=== PATIENT | male | born 1945 | race Caucasian/White ===

== ENCOUNTER 2016-10-18 12:46 | Inpatient (IN) | payer MEDICARE, BC ==
[2016-10-18] MEDS ORDERED: NORMAL SALINE 1000 ML 500 ML IV ONE (13:53)
[2016-10-18] MEDS ORDERED: LIDOCAINE 2% URO-JET 5 ML KIT MM ONE (13:53)
[2016-10-18] MEDS ORDERED: ACETAMINOPHEN 325 MG TABLET PO ONE (13:53)
--- NOTE | 2016-10-18 13:53 | ER Document Report ---
ED Fall - General Mode of Arrival: Medic Information source: Patient, Relative - TRAVEL OUTSIDE OF THE [place] IN LAST 30 DAYS: No - HPI Patient complains to provider of: Fall and weakness Occurred: This morning Context: Fell from sitting Associated symptoms: Other - see notes above Location of injury/pain: Other - see notes above <COLLIN FRANK - Last Filed: 10/18/16 16:03> <JACOB CHRISTIAN - Last Filed: 10/18/16 19:12> - General Chief Complaint: General Weakness Stated Complaint: GENERAL WEAKNESS/FALLS Time Seen by Provider: 10/18/16 13:40 Notes: 71-year-old male with history of diabetes, dementia, CHF, COPD, abdominal aortic aneurysm, and a left hip replacement presents to the ED via EMS after the patient fell while getting out of his bed and experiencing generalized weakness earlier this morning. Patient's states that she heard the patient yell at approximately 10:00 this morning and saw that the patient had fallen on his stomach with his left leg under his body. tried to help the patient up but was unable to so she called EMS. EMS arrived and reports a blood glucose of 155 and a temperature 101.4F. Reports that the patient may have scraped his right forearm as there is a new ecchymotic bruise there. Patient's left hip was replaced 6 months ago and is concerned that he may have hurt it when he fell. 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 claims that the patient has had episodes of weakness like this in the past. also states that the patient has had a bad appetite and is losing weight. PCP: Dr. Vela (COLLIN FRANK) - Related data Allergies/Adverse Reactions: Penicillins Allergy (Verified 05/01/15 12:58) unknown reaction from a child Past Medical History - General Information source: Patient - Social History Smoking Status: Current Every Day Smoker Chew tobacco use (# tins/day): No Frequency of alcohol use: None Drug Abuse: None Family History: Reviewed & Not Pertinent - Past Medical History Cardiac Medical History: Reports: Hx Congestive Heart Failure, Hx Heart Attack - x2, last one approx 4 yrs ago, Hx Hypertension - medicated, Other - Abdominal aorta aneurysm Pulmonary Medical History: Reports: Hx COPD Denies: Hx Asthma Neurological Medical History: Denies: Hx Cerebrovascular Accident, Hx Seizures Endocrine Medical History: Reports: Hx Diabetes Mellitus Type 2 GI Medical History: Denies: Hx Hepatitis, Hx Hiatal Hernia, Hx Ulcer Musculoskeltal Medical History: Reports Other - left hip replacement Infectious Medical History: Denies: Hx Hepatitis Past Surgical History: Reports: Hx Open Heart Surgery, Hx Orthopedic Surgery - left hip replacement. Denies: Hx Pacemaker <COLLIN FRANK - Last Filed: 10/18/16 16:03> Review of Systems - Review of Systems Constitutional: See HPI, Weight loss EENT: No symptoms reported Cardiovascular: No symptoms reported Respiratory: No symptoms reported Gastrointestinal: See HPI, Poor appetite Genitourinary: No symptoms reported Male Genitourinary: No symptoms reported Musculoskeletal: No symptoms reported Skin: No symptoms reported Hematologic/Lymphatic: No symptoms reported Neurological/Psychological: See HPI, Weakness - generalized -: Yes All other systems reviewed and negative <COLLIN FRANK - Last Filed: 10/18/16 16:03> Physical Exam <COLLIN FRANK - Last Filed: 10/18/16 16:03> <JACOB CHRISTIAN - Last Filed: 10/18/16 19:12> - Vital signs Vitals: Temp Pulse Resp BP Pulse Ox 100.1 F 115 H 22 H 117/84 94 10/18/16 12:57 10/18/16 12:57 10/18/16 12:57 10/18/16 12:57 10/18/16 12:57 - Notes Notes: GENERAL: Alert, interacts well. No acute distress. HEAD: Normocephalic, atraumatic. EYES: Pupils equal, round, and reactive to light. Extraocular movements intact. ENT: Oral mucosa moist, tongue midline. NECK: Full range of motion. Supple. Trachea midline. LUNGS: Clear to auscultation bilaterally, no wheezes, rales, or rhonchi. No respiratory distress. HEART: Tachycardic with normal rhythm. No murmurs, gallops, or rubs. ABDOMEN: Soft. Non-distended. Bowel sounds present in all 4 quadrants. Tenderness to palpation to the LLQ. EXTREMITIES: Moves all 4 extremities spontaneously. No edema, radial and dorsalis pedis pulses 2/4 bilaterally. No cyanosis. NEUROLOGICAL: Alert and oriented x3. Normal speech. Biceps and patellar DTRs 2+ bilaterally. 5/5 muscle strength to the bilateral lower extremities. PSYCH: Normal affect, normal mood. SKIN: Warm, dry, normal turgor. Superficial ecchymosis at various stages of healing that are worse on the right arm than left. Ecchymosis to the bilateral knees. No break in skin noted. (COLLIN FRANK) Course - Laboratory Result Diagrams: 10/18/16 14:03 10/18/16 14:03 <COLLIN FRANK - Last Filed: 10/18/16 16:03> - Laboratory Result Diagrams: 10/18/16 14:03 10/18/16 14:03 <JACOB CHRISTIAN - Last Filed: 10/18/16 19:12> - Re-evaluation Re-evalutation: 10/18/16 16:02 CBC shows leukocytosis of 15.7 with a bandemia of 6%, coags within normal limits , venous blood gas grossly unremarkable, chemistries show increased creatinine at 1.59, lactic acid is elevated at 2.4, cardiac enzymes negative but detectable with a troponin of 0.015. Urinalysis negative. Chest x-ray shows some curly B-lines for some mild interstitial edema, CT scan of the head shows old lacunar infarct and small vessel disease but no acute bleed or abnormality. Patient does fits sepsis criteria with his initial tachycardia and hypoxia as well as leukocytosis and elevated lactic acid. Patient will not be given 30 cc/ kg of fluid at this time as he has a history of congestive heart failure and I do not wish to compromise his respiratory status. Patient does have an EKG that shows some mild ischemic changes. Patient was covered with Levaquin for sepsis of unknown origin. CTA of the chest will be ordered to rule out pulmonary embolism as he still requires 4 L via nasal cannula to maintain his oxygen saturation at 93%. CT scan of the abdomen and pelvis with IV contrast only will also be ordered as the patient is now complaining of some left lower quadrant abdominal pain and he does have left lower quadrant abdominal pain on palpation on exam. Patient and family member were updated on the plan. (JACOB CHRISTIAN) - Vital Signs Vital signs: Temp Pulse Resp BP Pulse Ox 100.1 F 115 H 20 117/84 93 10/18/16 12:57 10/18/16 12:57 10/18/16 16:00 10/18/16 12:57 10/18/16 16:00 - Laboratory Laboratory results interpreted by me: 10/18/16 10/18/16 10/18/16 14:03 14:03 14:03 WBC 15.7 H RDW 14.7 H Seg Neuts % (Manual) 86 H Band Neutrophils % 6 H Lymphocytes % (Manual) 3 L Abs Neuts (Manual) 14.4 H Sodium 135.3 L Chloride 95 L Creatinine 1.59 H Est GFR ( Amer) 52 L Est GFR (Non-Af Amer) 43 L Glucose 116 H Lactic Acid 2.4 H NT-Pro-B Natriuret Pep 10/18/16 10/18/16 14:03 18:30 WBC RDW Seg Neuts % (Manual) Band Neutrophils % Lymphocytes % (Manual) Abs Neuts (Manual) Sodium Chloride Creatinine Est GFR ( Amer) Est GFR (Non-Af Amer) Glucose Lactic Acid 2.4 H NT-Pro-B Natriuret Pep 1760 H - EKG Interpretation by Me Additional EKG results interpreted by me: 10/18/16 14:51 EKG shows sinus rhythm at a rate of 95, normal axis, normal intervals, ST segment elevation with T-wave inversions in aVR, no other ST segment elevations , there are ST segment depressions in V3 through V6, per my interpretation. Patient is not having any chest pain with this. (JACOB CHRISTIAN) Discharge <COLLIN FRANK - Last Filed: 10/18/16 16:03> - Discharge Admitting Provider: Hospitalist - [facility] Unit Admitted: [facility] <JACOB CHRISTIAN - Last Filed: 10/18/16 19:12> - Discharge Clinical Impression: Acute on chronic respiratory failure with hypoxia Sepsis Qualifiers: Sepsis type: sepsis due to unspecified organism Qualified Code(s): A41.9 - Sepsis, unspecified organism Acute renal failure Qualifiers: Acute renal failure type: unspecified Qualified Code(s): N17.9 - Acute kidney failure, unspecified Senile dementia Qualifiers: Dementia behavioral disturbance: without behavioral disturbance Qualified Code( s): F03.90 - Unspecified dementia without behavioral disturbance Condition: Fair Disposition: ADMITTED INPATIENT Scribe Attestation: 10/18/16 19:12 I personally performed the services described in the documentation, reviewed and edited the documentation which was dictated to the scribe in my presence, and it accurately records my words and actions. (JACOB CHRISTIAN) Scribe Documentation - Scribe Written by Jerry:: Jerry Chávez, 10/18/2016 1446 acting as scribe for :: Michel <COLLIN FRANK - Last Filed: 10/18/16 16:03>
[2016-10-18 14:17] LABS: HEMOGLOBIN 15.3 g/dL (13.5-17.0); HGB HCT DIFFERENCE -1.1; MEAN CORPUSCULAR HGB CONC 32.6 g/dL (32.0-36.0); MEAN CORPUSCULAR VOLUME 89 fl (80-97); RED BLOOD COUNT 5.29 10^6/uL (4.35-5.55); RED CELL DISTRIBUTION WIDTH 14.7 % (11.5-14.0); WHITE BLOOD COUNT 15.7 10^3/uL (4.0-10.5)
[2016-10-18 14:21] LABS: APPEARANCE,URINE CLEAR; BILIRUBIN,URINE NEGATIVE (NEGATIVE); GLUCOSE, URINE NEGATIVE (NEGATIVE); KETONES,URINE NEGATIVE (NEGATIVE); LEUKOCYTE ESTERASE,URINE NEGATIVE (NEGATIVE); NITRITE,URINE NEGATIVE (NEGATIVE); PROTEIN,URINE NEGATIVE (NEGATIVE); URINE SPECIFIC GRAVITY 1.008; UROBILINOGEN,URINE NEGATIVE mg/dL (<2.0)
[2016-10-18 14:23] LABS: PROTHROMBIN TIME 12.7 SEC (11.4-15.4)
[2016-10-18 14:35] LABS: ALANINE AMINOTRANSFERASE 24 U/L (21-72); ALBUMIN 3.9 g/dL (3.5-5.0); ALKALINE PHOSPHATASE 97 U/L (38-126); ANION GAP 10 (5-19); ASPARTATE AMINO TRANSFERASE 35 U/L (17-59); BAND NEUTROPHILS % (MANUAL) 6 % (3-5); BASOPHILS % (MANUAL) 0 % (0-2); BILIRUBIN,DIRECT 0.4 mg/dL (0.0-0.4); BILIRUBIN,TOTAL 0.7 mg/dL (0.2-1.3); BLOOD UREA NITROGEN 20 mg/dL (7-20); CALCIUM 9.3 mg/dL (8.4-10.2); CARBON DIOXIDE 30 mmol/L (22-30); CHLORIDE 95 mmol/L (98-107); CREATININE RESULT 1.59 mg/dL (0.52-1.25); EOSINOPHILS % (MANUAL) 1 % (0-6); GLUCOSE 116 mg/dL (75-110); LYMPHOCYTES % (MANUAL) 3 % (13-45); POTASSIUM 4.8 mmol/L (3.6-5.0); SODIUM 135.3 mmol/L (137-145); TOTAL CELLS COUNTED 100; TOTAL PROTEIN 7.2 g/dL (6.3-8.2)
[2016-10-18 14:37] LABS: HYPOCHROMASIA SLIGHT; PLATELET CLUMPS PRESENT
[2016-10-18] MEDS ORDERED: OXYCODONE HCL SR 10 MG TABLET PO ONE ×2 (14:50)
--- NOTE | 2016-10-18 15:34 | RADIOLOGY REPORT (SQ) ---
EXAM DESCRIPTION: CT HEAD WITHOUT COMPLETED DATE/TIME: 10/18/2016 3:11 pm REASON FOR STUDY: fall, AMS COMPARISON: Carotid Doppler 03/01/2015 TECHNIQUE: Axial images acquired through the brain without intravenous contrast. Images reviewed wi th bone, brain and subdural windows. Images stored on PACS. All CT scanners at this facility use dose modulation, iterative reconstruction, and/or weight based d osing when appropriate to reduce radiation dose to as low as reasonably achievable (ALARA). [facility]: Dose Right [facility]: CareDose [facility]: Dose Right [facility]: Teradose 4D [facility]: [employer] RADIATION DOSE: 64.61 mGy. LIMITATIONS: None. FINDINGS: VENTRICLES: Normal size and contour. CEREBRUM: No CT evidence of acute large territory ischemic change, acute intracranial hemorrhage, mas s effect, or midline shift. There is moderate bifrontal and biparietal small vessel ischemic change with a chronic lacunar infarc t in the left caudate. CEREBELLUM: No masses. No hemorrhage. No alteration of density. No evidence for acute infarction. EXTRAAXIAL SPACES: No fluid collections. No masses. ORBITS AND GLOBE: No intra- or extraconal masses. Normal contour of globe without masses. CALVARIUM: No fracture. PARANASAL SINUSES: No fluid or mucosal thickening. SOFT TISSUES: No mass or hematoma. OTHER: No other significant finding. IMPRESSION: No acute findings. Small vessel white matter disease with old lacunar infarct in the le ft caudate. TECHNICAL DOCUMENTATION: JOB ID: [id number] Quality ID # [id number]: Final reports with documentation of one or more dose reduction techniques (e.g., Au tomated exposure control, adjustment of the mA and/or kV according to patient size, use of iterative reconstruction technique) 2010 [employer]- All Rights Reserved
--- NOTE | 2016-10-18 15:43 | RADIOLOGY REPORT (SQ) ---
EXAM DESCRIPTION: CHEST SINGLE VIEW COMPLETED DATE/TIME: 10/18/2016 2:43 pm REASON FOR STUDY: SOB, fever COMPARISON: AP chest 06/20/2008 EXAM PARAMETERS: NUMBER OF VIEWS: One view. TECHNIQUE: Single frontal radiographic view of the chest acquired. RADIATION DOSE: NA LIMITATIONS: None. FINDINGS: LUNGS AND PLEURA: Mild increased interstitial markings at both bases may represent Vicki lines from mild interstitial edema. No fluffy alveolar infiltrates worrisome for alveolar edema or pneumonia. No gross pleural effusion. No pneumothorax. MEDIASTINUM AND HILAR STRUCTURES: No masses. Contour normal. HEART AND VASCULAR STRUCTURES: Heart normal in size. Normal vasculature. BONES: No acute findings. HARDWARE: None in the chest. OTHER: No other significant finding. IMPRESSION: Few Vicki lines at the lung bases could indicate mild interstitial edema. No pleural e ffusions or alveolar edema. No cardiomegaly TECHNICAL DOCUMENTATION: JOB ID: [id number]
[2016-10-18] MEDS ORDERED: LEVOFLOXACIN 750 MG/D5W RTU 150 ML IV ONE (15:47)
[2016-10-18 15:59] LABS: VENOUS BLOOD BASE EXCESS 3.6 mmol/L; VENOUS BLOOD HCO3 31.1 mmol/L (20-32); VENOUS BLOOD PCO2 59.4 mmHg (35-63); VENOUS BLOOD PH 7.34 (7.30-7.42)
[2016-10-18] MEDS ORDERED: NORMAL SALINE 1000 ML 1,000 ML IV ONE (16:36)
--- NOTE | 2016-10-18 16:54 | RADIOLOGY REPORT (SQ) ---
EXAM DESCRIPTION: CTA CHEST COMPLETED DATE/TIME: 10/18/2016 4:36 pm REASON FOR STUDY: SOB, tachycardia, hypoxia COMPARISON: None. TECHNIQUE: CT scan of the chest performed using helical scanning technique with dynamic intravenous contrast injection. Images reviewed with lung, soft tissue and bone windows. Reconstructed coronal and sagittal MPR images reviewed. Additional 3 dimensional post-processing performed to develop Maximal Intensity Projection images (WV P). All images stored on PACS. All CT scanners at this facility use dose modulation, iterative reconstruction, and/or weight based d osing when appropriate to reduce radiation dose to as low as reasonably achievable (ALARA). [facility]: Dose Right [facility]: CareDose [facility]: Dose Right [facility]: Teradose 4D [facility]: [employer] CONTRAST TYPE AND DOSE: 82 mL of Isovue 300- low osmolar. RENAL FUNCTION: BUN 20 creatinine 1.59 RADIATION DOSE: 41.33 . LIMITATIONS: None. FINDINGS: LUNGS AND PLEURA: There is parenchymal scarring and cystic changes noted in both lower lob es as well as scattered in the right upper lobe. Represent underlying pulmonary fibrosis. Scattered cystic changes are noted throughout the lungs could represent emphysematous disease. There is a 1. 6 cm nodular opacity noted in the right upper lobe (series 4, image 49). No focal infiltrates. No p neumothorax. No significant pleural effusion. AORTA AND GREAT VESSELS: No aneurysm or dissection. There is diffuse fibrofatty and calcific atherom atous disease seen throughout the descending thoracic aorta. HEART: No pericardial effusion. Coronary artery calcifications are noted. There is calcifications o f the aortic valve annulus. PULMONARY ARTERIES: No emboli visualized in the main pulmonary arteries or the segmental branches. HILAR AND MEDIASTINAL STRUCTURES: Soft tissue thickening seen in the right hilum could be related to adenopathy. There is minimal thickening seen in the left hilum. No significant mediastinal adenopat hy identified. HARDWARE: None in the chest. UPPER ABDOMEN: See separate report of the CT of the abdomen. THYROID AND OTHER SOFT TISSUES: No masses. No adenopathy. BONES: No acute or significant finding. Multilevel degenerative changes noted in the spine. 3D MIPS: Confirm above findings. OTHER: No other significant finding. IMPRESSION: 1. No acute pulmonary embolus identified. 2. There is some parenchymal scarring and cystic changes noted the lower lobe this could be represen t an of the underlying pulmonary fibrosis versus new parenchymal scarring related to chronic obstruct luan pulmonary disease. There is some parenchymal scarring noted throughout the right upper lobe. So me cystic changes seen in both upper lobes suggestive of emphysema. There is a 1.6 cm nodular like o pacity seen in the right upper lobe, follow-up recommendations of the below. No focal consolidations . COMMENT: FLEISCHNER CRITERIA FOR FOLLOW-UP OF PULMONARY NODULES Incidentally detected new nodules in persons 35 or older. HIGH RISK: History of smoking or other known risk factors. >8mm single solid nodule: LOW and HIGH RISK: consider CT, PET/CT or biopsy at 3 mo. TECHNICAL DOCUMENTATION: JOB ID: [id number] Quality ID # [id number]: Final reports with documentation of one or more dose reduction techniques (e.g., Au tomated exposure control, adjustment of the mA and/or kV according to patient size, use of iterative reconstruction technique) 2010 [employer]- All Rights Reserved
--- NOTE | 2016-10-18 17:07 | RADIOLOGY REPORT (SQ) ---
EXAM DESCRIPTION: CT ABD/PELVIS WITH IV ONLY COMPLETED DATE/TIME: 10/18/2016 4:37 pm REASON FOR STUDY: sepsis, source unknown, abd pain COMPARISON: None. TECHNIQUE: CT scan of the abdomen and pelvis performed using helical scanning technique with dynamic intravenous contrast injection. No oral contrast. Images reviewed with lung, soft tissue, and bone windows. Reconstructed coronal and sagittal MPR images reviewed. Delayed images for evaluation of the urinary system also acquired. All images stored on PACS. All CT scanners at this facility use dose modulation, iterative reconstruction, and/or weight based d osing when appropriate to reduce radiation dose to as low as reasonably achievable (ALARA). [facility]: Dose Right [facility]: CareDose [facility]: Dose Right [facility]: Teradose 4D [facility]: [employer] CONTRAST TYPE AND DOSE: contrast/concentration: Isovue 370.00 mg/ml; Total Contrast Delivered: 82.0 ml; Total Saline Delivered: 78.1 ml RENAL FUNCTION: BUN 20 creatinine 1.59 RADIATION DOSE: 32.35. LIMITATIONS: None. FINDINGS: LOWER CHEST: See separate report of the CT of the chest. LIVER: Normal size. No masses or dilated ducts. SPLEEN: Normal size. No focal lesions. PANCREAS: No masses. No significant calcifications. No adjacent inflammation or peripancreatic fluid collections. Pancreatic duct not dilated. Diffuse fatty replacement of the pancreas. GALLBLADDER: No identified stones by CT criteria. No inflammatory changes to suggest cholecystitis. ADRENAL GLANDS: 1.7 cm nodule noted in the left adrenal gland. Most likely represents an adenoma but cannot be properly evaluated on this study. Right adrenal is normal. RIGHT KIDNEY AND URETER: No solid masses. Numerous exophytic cysts noted throughout. No significant calcifications. No hydronephrosis or hydroureter. LEFT KIDNEY AND URETER: No solid masses. No significant calcifications. No hydronephrosis or hydr oureter. AORTA AND VESSELS: There is aneurysmal dilatation of the infrarenal abdominal aorta measuring 3.4 x 3 .3 cm in greatest AP and transverse dimensions. There is mural thrombus and/or fibrofatty plaque wit hin the aneurysm sac. Scattered calcific atherosclerosis noted in the vessel simon. No dissection. The celiac and SMA and renal arteries are patent. LANDY appears occluded at its origin and fills via collateral filling. RETROPERITONEUM: No retroperitoneal adenopathy, hemorrhage or masses. BOWEL AND PERITONEAL CAVITY: No masses or inflammatory changes. No free fluid or peritoneal masses. No pneumoperitoneum. APPENDIX: Not visualized. No blind-ending dilated loops of bowel are noted in the right lower quadra nt. No inflammatory changes seen in the right lower quadrant. PELVIS: No masses, adenopathy, or free fluid. There is slight thickening of the urinary bladder wall which may be secondary to underdistention versus muscle hypertrophy. ABDOMINAL WALL: No masses. No hernias. BONES: No suspicious or acute osseous abnormality identified. Multilevel degenerative changes of the spine. Left total hip arthroplasty. OTHER: No other significant finding. IMPRESSION: 1. No acute abnormality identified within the abdomen pelvis 2. Aneurysmal dilatation of the infrarenal abdominal aorta measuring 3.4 x 3.3 cm in greatest AP and transverse dimension. Mural thrombus noted within the aneurysm sac. No dissection. SMA and celiac and renal arteries are patent. The LANDY origin appears occluded and fills via collateral filling. 3. 1.7 cm nodule in the left adrenal gland. Not properly characterized on this study. TECHNICAL DOCUMENTATION: JOB ID: [id number] Quality ID # [id number]: Final reports with documentation of one or more dose reduction techniques (e.g., Au tomated exposure control, adjustment of the mA and/or kV according to patient size, use of iterative reconstruction technique) 2010 [employer]- All Rights Reserved
[2016-10-18] MEDS ORDERED: ACETAMINOPHEN 650 MG SUPP.RECT PR PRN (18:24)
[2016-10-18] MEDS ORDERED: ONDANSETRON HCL INJ/PF 4 MG/2 ML SDV IV PRN (18:24)
--- NOTE | 2016-10-18 18:38 | PDOC H&P ---
History of Present Illness Admission Date/PCP: LEEROY MCNAIR MD Patient complains of: Fall History of Present Illness: MONIQUE CALLAHAN is a 71 year old male, w/ history of dementia, COPD, CHF has runny nose and sinus congestion for 3 weeks. There is mild headache. He is not on the home oxygen. He has a mild cough productive of yellowish phlegm. There is no sore throat associated. No hemoptysis. There is no pleurisy, shortness of breath, dizziness or lightheadedness, but admits having some facial pressure intermittently. Denies any chills or fever as well. Earlier the day prior to admission patient fell on the floor but without any significant injuries. He was having generalized weakness and unable to get up. He was found by his and was brought to the hospital. In the emergency room where workup was performed he has lactic acid level was mildly elevated as well as brain natruretic peptide. Chest x-ray shows chronic interstitial findings. He does have a history of CHF. Emergency physician thought it was a combination of sepsis as well as heart failure and so antibiotic was given but no aggressive IV fluid management was done. Patient did have a fever in the emergency room. He denies recent travel nor any insect bites. Past Medical History Cardiac Medical History: Reports: Congestive Heart Failure, Coronary Artery Disease, Myocardial Infarction - x2, last one approx 4 yrs ago, Hypertension - medicated, Peripheral Vascular Disease, Other - Abdominal aorta aneurysm Pulmonary Medical History: Reports: Chronic Obstructive Pulmonary Disease (COPD) Denies: Asthma Neurological Medical History: Reports: Other - Dementia Denies: Seizures Endocrine Medical History: Reports: Diabetes Mellitus Type 2 GI Medical History: Denies: Hepatitis, Hiatal Hernia Musculoskeltal Medical History: Reports: Other - left hip replacement Hematology: Denies: Anemia, Sickle Cell Disease Past Surgical History Past Surgical History: Reports: Orthopedic Surgery - left hip replacement, Other - Cataract surgery, femoral popliteal bypass Denies: Pacemaker Social History Information Source: Patient Smoking Status: Current Every Day Smoker Frequency of Alcohol Use: None Hx Recreational Drug Use: No Drugs: None Family History Family History: None Parental Family History Reviewed: Yes Children Family History Reviewed: Yes Sibling(s) Family History Reviewed.: Yes Medication/Allergy Home Medications: Aspirin 81 mg PO DAILY 05/01/15 Atorvastatin Calcium [Lipitor 20 mg Tablet] 20 mg PO QHS 05/01/15 Clopidogrel Bisulfate [Plavix] 75 mg PO DAILY 05/01/15 Diazepam [Valium] 20 mg PO QHS 05/01/15 Gabapentin [Neurontin] 600 mg PO QHS 05/01/15 Lisinopril 40 mg PO DAILY 05/01/15 Metformin HCl [Glucophage] 1,000 mg PO QPM 05/01/15 Metoprolol Succinate 200 mg PO DAILY 05/01/15 Nitroglycerin [Nitrostat 0.4 mg (1/150 Gr) Tabs 25/Bottle] 1 tab SL Q5MP PRN Omeprazole 20 mg PO DAILY 05/01/15 Oxycodone HCl 30 mg PO QAM 05/01/15 Donepezil HCl 5 mg PO DAILY 10/18/16 Meloxicam 7.5 mg PO DAILY 10/18/16 Oxycodone HCl 15 mg PO Q4HP PRN 10/18/16 Allergies/Adverse Reactions: Penicillins Allergy (Verified 05/01/15 12:58) unknown reaction from a child Review of Systems Constitutional: PRESENT: fatigue, headache(s), weakness - Generalized. ABSENT: chills, fever(s), weight gain, weight loss Eyes: ABSENT: visual disturbances Ears: ABSENT: hearing changes Nose, Mouth, and Throat: ABSENT: mouth pain, sore throat Cardiovascular: ABSENT: chest pain, dyspnea on exertion, edema, orthropnea, palpitations Respiratory: PRESENT: cough, sputum. ABSENT: dyspnea, hemoptysis Gastrointestinal: ABSENT: abdominal pain, constipation, diarrhea, hematemesis, hematochezia, melena, nausea, vomiting Genitourinary: ABSENT: dysuria, hematuria Musculoskeletal: ABSENT: joint swelling Integumentary: ABSENT: pruritus, rash, wounds Neurological: ABSENT: abnormal gait, abnormal speech, confusion, dizziness, focal weakness, syncope Psychiatric: ABSENT: anxiety, depression, homidical ideation, suicidal ideation Endocrine: ABSENT: cold intolerance, heat intolerance, polydipsia, polyuria Hematologic/Lymphatic: ABSENT: easy bleeding, easy bruising Physical Exam Vital Signs: Temp Pulse Resp BP Pulse Ox 100.1 F 115 H 20 117/84 93 10/18/16 12:57 10/18/16 12:57 10/18/16 16:00 10/18/16 12:57 10/18/16 16:00 General appearance: PRESENT: no acute distress, cooperative, obese Head exam: PRESENT: atraumatic, normocephalic Eye exam: PRESENT: conjunctiva pink, EOMI, PERRLA. ABSENT: scleral icterus Ear exam: PRESENT: normal external ear exam. ABSENT: drainage Mouth exam: PRESENT: moist, neck supple, tongue midline Throat exam: PRESENT: other - Postnasal drip. ABSENT: post pharyngeal erythema , tonsillar erythema Neck exam: ABSENT: carotid bruit, JVD, lymphadenopathy, thyromegaly Respiratory exam: PRESENT: clear to auscultation rocio - Anteriorly, decreased breath sounds - Bilateral. ABSENT: rales, rhonchi, wheezes Cardiovascular exam: PRESENT: RRR. ABSENT: diastolic murmur, rubs, systolic murmur Pulses: PRESENT: normal dorsalis pedis pul Vascular exam: PRESENT: normal capillary refill GI/Abdominal exam: PRESENT: normal bowel sounds, soft. ABSENT: distended, guarding, mass, organolmegaly, rebound, tenderness Rectal exam: PRESENT: deferred Extremities exam: PRESENT: full ROM. ABSENT: calf tenderness, clubbing, pedal edema Neurological exam: PRESENT: alert, awake, oriented to person, oriented to place , oriented to time, oriented to situation, CN II-XII grossly intact Psychiatric exam: PRESENT: appropriate affect, normal mood. ABSENT: homicidal ideation, suicidal ideation Skin exam: PRESENT: dry, intact, warm. ABSENT: cyanosis, rash Results Laboratory Results: 10/18/16 14:03 10/18/16 14:03 10/18/16 10/18/16 10/18/16 13:34 14:03 14:03 WBC 15.7 H RBC 5.29 Hgb 15.3 Hct 47.0 MCV 89 MCH 29.0 MCHC 32.6 RDW 14.7 H Plt Count 154 Seg Neutrophils % Not Reportable Lymphocytes % Not Reportable Monocytes % Not Reportable Eosinophils % Not Reportable Basophils % Not Reportable Absolute Neutrophils Not Reportable Absolute Lymphocytes Not Reportable Absolute Monocytes Not Reportable Absolute Eosinophils Not Reportable Absolute Basophils Not Reportable VBG pH VBG pCO2 VBG HCO3 VBG Base Excess Sodium 135.3 L Potassium 4.8 Chloride 95 L Carbon Dioxide 30 Anion Gap 10 BUN 20 Creatinine 1.59 H Est GFR ( Amer) 52 L Est GFR (Non-Af Amer) 43 L Glucose 116 H Lactic Acid Calcium 9.3 Total Bilirubin 0.7 AST 35 ALT 24 Alkaline Phosphatase 97 Total Protein 7.2 Albumin 3.9 Urine Color YELLOW Urine Appearance CLEAR Urine pH 7.0 Ur Specific [place] 1.008 Urine Protein NEGATIVE Urine Glucose (UA) NEGATIVE Urine Ketones NEGATIVE Urine Blood NEGATIVE Urine Nitrite NEGATIVE Ur Leukocyte Esterase NEGATIVE Urine WBC (Auto) 0 Urine RBC (Auto) 1 10/18/16 10/18/16 14:03 15:50 WBC RBC Hgb Hct MCV MCH MCHC RDW Plt Count Seg Neutrophils % Lymphocytes % Monocytes % Eosinophils % Basophils % Absolute Neutrophils Absolute Lymphocytes Absolute Monocytes Absolute Eosinophils Absolute Basophils VBG pH 7.34 VBG pCO2 59.4 VBG HCO3 31.1 VBG Base Excess 3.6 Sodium Potassium Chloride Carbon Dioxide Anion Gap BUN Creatinine Est GFR ( Amer) Est GFR (Non-Af Amer) Glucose Lactic Acid 2.4 H Calcium Total Bilirubin AST ALT Alkaline Phosphatase Total Protein Albumin Urine Color Urine Appearance Urine pH Ur Specific [place] Urine Protein Urine Glucose (UA) Urine Ketones Urine Blood Urine Nitrite Ur Leukocyte Esterase Urine WBC (Auto) Urine RBC (Auto) 10/18/16 10/18/16 14:03 14:03 Troponin I 0.015 NT-Pro-B Natriuret Pep 1760 H Impressions: Chest X-Ray 10/18/16 13:53 IMPRESSION: Few Vicki lines at the lung bases could indicate mild interstitial edema. No pleural effusions or alveolar edema. No cardiomegaly Head CT 10/18/16 13:53 IMPRESSION: No acute findings. Small vessel white matter disease with old lacunar infarct in the left caudate. Chest/Abdomen CTA 10/18/16 15:45 IMPRESSION: 1. No acute pulmonary embolus identified. 2. There is some parenchymal scarring and cystic changes noted the lower lobe this could be represent an of the underlying pulmonary fibrosis versus new parenchymal scarring related to chronic obstructive pulmonary disease. There is some parenchymal scarring noted throughout the right upper lobe. Some cystic changes seen in both upper lobes suggestive of emphysema. There is a 1.6 cm nodular like opacity seen in the right upper lobe, follow-up recommendations of the below. No focal consolidations. Abdomen/Pelvis CT 10/18/16 15:46 IMPRESSION: 1. No acute abnormality identified within the abdomen pelvis 2. Aneurysmal dilatation of the infrarenal abdominal aorta measuring 3.4 x 3.3 cm in greatest AP and transverse dimension. Mural thrombus noted within the aneurysm sac. No dissection. SMA and celiac and renal arteries are patent. The LANDY origin appears occluded and fills via collateral filling. 3. 1.7 cm nodule in the left adrenal gland. Not properly characterized on this study. Assessment & Plan - Diagnosis (1) Sepsis Qualifiers: Sepsis type: sepsis due to unspecified organism Qualified Code(s): A41.9 - Sepsis, unspecified organism Is this a current diagnosis for this admission?: Yes (2) Acute sinusitis Qualifiers: Sinusitis location: unspecified location Recurrence: not specified as recurrent Qualified Code(s): J01.90 - Acute sinusitis, unspecified Is this a current diagnosis for this admission?: Yes (3) Acute renal failure Qualifiers: Acute renal failure type: unspecified Qualified Code(s): N17.9 - Acute kidney failure, unspecified Is this a current diagnosis for this admission?: Yes (4) COPD (chronic obstructive pulmonary disease) Qualifiers: COPD type: unspecified COPD Qualified Code(s): J44.9 - Chronic obstructive pulmonary disease, unspecified Is this a current diagnosis for this admission?: Yes (5) Senile dementia Qualifiers: Dementia behavioral disturbance: without behavioral disturbance Qualified Code(s): F03.90 - Unspecified dementia without behavioral disturbance Is this a current diagnosis for this admission?: Yes (6) Diabetes mellitus type 2 in nonobese Is this a current diagnosis for this admission?: Yes (7) Abdominal aortic aneurysm Qualifiers: Presence of rupture: without rupture Qualified Code(s): I71.4 - Abdominal aortic aneurysm, without rupture Is this a current diagnosis for this admission?: Yes (8) Coronary artery disease Qualifiers: Coronary Disease-Associated Artery/Lesion type: [place] artery [place] vs. transplanted heart: [place] heart Associated angina: without angina Qualified Code(s): I25.10 - Atherosclerotic heart disease of [place] coronary artery without angina pectoris Is this a current diagnosis for this admission?: Yes (9) Essential hypertension Is this a current diagnosis for this admission?: Yes (10) Peripheral vascular disease Is this a current diagnosis for this admission?: Yes - Time Time Spent: 50 to 70 Minutes - Inpatient Certification Based on my medical assessment, after consideration of the patient's comorbidities, presenting symptoms, or acuity I expect that the services needed warrant INPATIENT care.: Yes I certify that my determination is in accordance with my understanding of Medicare's requirements for reasonable and necessary INPATIENT services [42 CFR 412.3e].: Yes Medical Necessity: Need Close Monitoring Due to Risk of Patient Decompensation, Need For IV Fluids, Need For Continuous Telemetry Monitoring, Need for IV Antibiotics Post Hospital Care: D/C [employer] Refrigeration Technician Documentation - Plan Summary Plan Summary: The patient will be admitted to telemetry. I will gently hydrate the patient with normal saline. We will begin broad-spectrum antibiotic with Levaquin and clindamycin. In the meantime we will monitor creatinine and WBC. DVT prophylaxis with Lovenox will be placed. Antipyretics will be given as needed. We will check a KUB for impaction. Patient's mildly elevated lactic acid could be secondary to metformin, we will hold the medication for now. Further testing depends on the initial evaluation as outlined above.
[2016-10-18] MEDS ORDERED: INSULIN REG, HUMAN 100 UNIT/ML 3 ML VIAL (PYX) SUBCUT PRN (18:57)
[2016-10-18] MEDS ORDERED: GLUCAGON,HUMAN RECOMB 1 MG INJ IM PRN (18:57)
[2016-10-18] MEDS ORDERED: DEXTROSE 40% GEL 15 GM TUBE PO PRN ×2 (18:57)
[2016-10-18] MEDS ORDERED: DEXTROSE 50%-WATER 25 GM/50 ML DISP.SYRIN IV PRN ×2 (18:57)
[2016-10-18] MEDS: CLINDAMYCIN 600 MG/D5W RTU 600 MG/50 ML RTUPB IV SCH (21:24)
[2016-10-18] MEDS: GABAPENTIN 300 MG CAPSULE PO SCH (21:25)
[2016-10-18] MEDS: NORMAL SALINE 1000 ML 1,000 ML IV PRN (21:25)
[2016-10-19 05:00] LABS: ABSOLUTE BASOPHILS # (AUTO) 0.1 10^3/uL (0.0-0.2); ABSOLUTE LYMPHOCYTES (AUTO) 1.7 10^3/uL (0.5-4.7); ABSOLUTE MONOCYTES (AUTO) 1.1 10^3/uL (0.1-1.4); ABSOLUTE NEUT (AUTO) 16.5 10^3/uL (1.7-8.2); BASOPHILS % (AUTO) 0.3 % (0-2); EOSINOPHILS % (AUTO) 0.1 % (0-6); HEMATOCRIT 35.9 % (37.9-51.0); HGB HCT DIFFERENCE -0.8; LYMPHOCYTES % (AUTO) 8.9 % (13-45); MEAN CORPUSCULAR HEMOGLOBIN 29.4 pg (27.0-33.4); MEAN CORPUSCULAR HGB CONC 32.6 g/dL (32.0-36.0); MEAN CORPUSCULAR VOLUME 90 fl (80-97); MONOCYTES % (AUTO) 5.8 % (3-13); RED BLOOD COUNT 3.97 10^6/uL (4.35-5.55); RED CELL DISTRIBUTION WIDTH 15.3 % (11.5-14.0); SEGMENTED NEUTROPHILS % (AUTO) 84.9 % (42-78); WHITE BLOOD COUNT 19.4 10^3/uL (4.0-10.5)
[2016-10-19 05:15] LABS: ANION GAP 7 (5-19); BLOOD UREA NITROGEN 24 mg/dL (7-20); CARBON DIOXIDE 26 mmol/L (22-30); CHLORIDE 101 mmol/L (98-107); CREATININE RESULT 1.69 mg/dL (0.52-1.25); GLUCOSE 92 mg/dL (75-110); POTASSIUM 5.5 mmol/L (3.6-5.0); SODIUM 133.9 mmol/L (137-145)
[2016-10-19 05:16] LABS: HEMOGLOBIN 11.7 g/dL (13.5-17.0)
[2016-10-19] MEDS: CLINDAMYCIN 600 MG/D5W RTU 600 MG/50 ML RTUPB IV SCH ×3 (05:30→22:39)
[2016-10-19] MEDS: LANSOPRAZOLE 30 MG TAB.RAP.DR PO SCH (05:30)
[2016-10-19] MEDS: ASPIRIN 81 MG TABLET, CHEWABLE PO SCH (10:55)
[2016-10-19] MEDS: CLOPIDOGREL BISULFATE 75 MG TABLET PO SCH (10:55)
[2016-10-19] MEDS: ENOXAPARIN SODIUM INJ 40 MG/0.4 ML DISP.SYRIN SUBCUT SCH (10:55)
[2016-10-19] MEDS: METOPROLOL SUCCINATE 50 MG TAB.SR.24H PO SCH (10:56)
[2016-10-19] MEDS: NORMAL SALINE 1000 ML 1,000 ML IV PRN (10:56)
[2016-10-19] MEDS: DOCUSATE SODIUM 100 MG CAPSULE PO SCH ×2 (10:56→17:09)
[2016-10-19] MEDS ORDERED: NICOTINE 21 MG/24 HR PATCH.TD24 TD PRN (11:35)
[2016-10-19] MEDS ORDERED: NORMAL SALINE 1000 ML 1,000 ML IV PRN (11:44)
--- NOTE | 2016-10-19 11:50 | PDOC PROGRESS REPORT ---
Subjective Progress Note for:: 10/19/16 Subjective:: No reported respiratory distress, N/V, chills nor fever. Had good BM. Appetite fair. Denies any pain or discomfort. Physical Exam Vital Signs: Temp Pulse Resp BP Pulse Ox 98.0 F 80 20 130/50 H 93 10/19/16 07:27 10/19/16 07:27 10/19/16 07:27 10/19/16 07:27 10/19/16 07:27 Intake & Output 10/18/16 10/19/16 10/20/16 06:59 06:59 06:59 Intake Total 300 Balance 300 Weight 76.6 kg General appearance: PRESENT: no acute distress, obese Head exam: PRESENT: normocephalic Eye exam: PRESENT: EOMI Mouth exam: PRESENT: moist, neck supple Neck exam: ABSENT: JVD Respiratory exam: PRESENT: clear to auscultation rocio, wheezes - mild. ABSENT: rhonchi Cardiovascular exam: PRESENT: RRR. ABSENT: gallop GI/Abdominal exam: PRESENT: soft. ABSENT: distended, tenderness Extremities exam: ABSENT: pedal edema Neurological exam: PRESENT: alert, awake, oriented to situation Skin exam: PRESENT: dry, warm. ABSENT: cyanosis Results Laboratory Results: 10/19/16 04:48 10/19/16 04:48 10/18/16 10/19/16 10/19/16 18:30 04:48 04:48 WBC 19.4 H RBC 3.97 L Hgb 11.7 L D Hct 35.9 L MCV 90 MCH 29.4 MCHC 32.6 RDW 15.3 H Plt Count 137 L Seg Neutrophils % 84.9 H Lymphocytes % 8.9 L Monocytes % 5.8 Eosinophils % 0.1 Basophils % 0.3 Absolute Neutrophils 16.5 H Absolute Lymphocytes 1.7 Absolute Monocytes 1.1 Absolute Eosinophils 0.0 Absolute Basophils 0.1 Sodium 133.9 L Potassium 5.5 H Chloride 101 Carbon Dioxide 26 Anion Gap 7 BUN 24 H Creatinine 1.69 H Est GFR ( Amer) 49 L Est GFR (Non-Af Amer) 40 L Glucose 92 Lactic Acid 2.4 H Calcium 8.0 L Impressions: Chest X-Ray 10/18/16 13:53 IMPRESSION: Few Vicki lines at the lung bases could indicate mild interstitial edema. No pleural effusions or alveolar edema. No cardiomegaly Head CT 10/18/16 13:53 IMPRESSION: No acute findings. Small vessel white matter disease with old lacunar infarct in the left caudate. Chest/Abdomen CTA 10/18/16 15:45 IMPRESSION: 1. No acute pulmonary embolus identified. 2. There is some parenchymal scarring and cystic changes noted the lower lobe this could be represent an of the underlying pulmonary fibrosis versus new parenchymal scarring related to chronic obstructive pulmonary disease. There is some parenchymal scarring noted throughout the right upper lobe. Some cystic changes seen in both upper lobes suggestive of emphysema. There is a 1.6 cm nodular like opacity seen in the right upper lobe, follow-up recommendations of the below. No focal consolidations. Abdomen/Pelvis CT 10/18/16 15:46 IMPRESSION: 1. No acute abnormality identified within the abdomen pelvis 2. Aneurysmal dilatation of the infrarenal abdominal aorta measuring 3.4 x 3.3 cm in greatest AP and transverse dimension. Mural thrombus noted within the aneurysm sac. No dissection. SMA and celiac and renal arteries are patent. The LANDY origin appears occluded and fills via collateral filling. 3. 1.7 cm nodule in the left adrenal gland. Not properly characterized on this study. Assessment & Plan - Diagnosis (1) Sepsis Qualifiers: Sepsis type: sepsis due to unspecified organism Qualified Code(s): A41.9 - Sepsis, unspecified organism Is this a current diagnosis for this admission?: Yes (2) Acute sinusitis Qualifiers: Sinusitis location: unspecified location Recurrence: not specified as recurrent Qualified Code(s): J01.90 - Acute sinusitis, unspecified Is this a current diagnosis for this admission?: Yes (3) Acute renal failure Qualifiers: Acute renal failure type: unspecified Qualified Code(s): N17.9 - Acute kidney failure, unspecified Is this a current diagnosis for this admission?: Yes (4) COPD (chronic obstructive pulmonary disease) Qualifiers: COPD type: unspecified COPD Qualified Code(s): J44.9 - Chronic obstructive pulmonary disease, unspecified Is this a current diagnosis for this admission?: Yes (5) Senile dementia Qualifiers: Dementia behavioral disturbance: without behavioral disturbance Qualified Code(s): F03.90 - Unspecified dementia without behavioral disturbance Is this a current diagnosis for this admission?: Yes (6) Diabetes mellitus type 2 in nonobese Is this a current diagnosis for this admission?: Yes (7) Abdominal aortic aneurysm Qualifiers: Presence of rupture: without rupture Qualified Code(s): I71.4 - Abdominal aortic aneurysm, without rupture Is this a current diagnosis for this admission?: Yes (8) Coronary artery disease Qualifiers: Coronary Disease-Associated Artery/Lesion type: [place] artery [place] vs. transplanted heart: [place] heart Associated angina: without angina Qualified Code(s): I25.10 - Atherosclerotic heart disease of [place] coronary artery without angina pectoris Is this a current diagnosis for this admission?: Yes (9) Essential hypertension Is this a current diagnosis for this admission?: Yes (10) Peripheral vascular disease Is this a current diagnosis for this admission?: Yes - Time Time Spent with patient: 25-34 minutes - Plan Summary Plan Summary: Begin advair,and nebulizers. Cont. antibiotics. Re-check WBC in am. IVF to KVO.
--- NOTE | 2016-10-19 12:59 | EKG REPORT ---
SEVERITY:- NORMAL ECG - SINUS RHYTHM : Confirmed by: Rebecca Llamas MD 19-Oct-2016 12:58:56
--- NOTE | 2016-10-19 12:59 | EKG REPORT ---
SEVERITY:- NORMAL ECG - SINUS RHYTHM : Confirmed by: Rebecca Llamas MD 19-Oct-2016 12:58:51
[2016-10-19] MEDS: IPRATROPIUM/ALBUTEROL 0.5-2.5 MG/3 ML AMPUL NEB SCH ×2 (14:19→20:00)
[2016-10-19] MEDS: OXYCODONE HCL IR 5 MG TABLET PO PRN (17:08)
[2016-10-19] MEDS: FLUTICASONE/SALMETEROL DISKUS 250-50 MCG/DOSE IH SCH (17:08)
[2016-10-19] MEDS ORDERED: LEVOFLOXACIN 750 MG/D5W RTU 750 MG/150 ML RTUPB IV SCH (18:00)
[2016-10-19] MEDS ORDERED: ATORVASTATIN CALCIUM 20 MG TABLET PO SCH (22:00)
[2016-10-19] MEDS: GABAPENTIN 300 MG CAPSULE PO SCH (22:39)
[2016-10-20] MEDS: IPRATROPIUM/ALBUTEROL 0.5-2.5 MG/3 ML AMPUL NEB SCH ×2 (02:12→08:48)
[2016-10-20 05:14] LABS: ANION GAP 6 (5-19); BLOOD UREA NITROGEN 20 mg/dL (7-20); CALCIUM 8.2 mg/dL (8.4-10.2); CARBON DIOXIDE 26 mmol/L (22-30); CHLORIDE 98 mmol/L (98-107); CREATININE RESULT 1.53 mg/dL (0.52-1.25); GLUCOSE 96 mg/dL (75-110); POTASSIUM 4.8 mmol/L (3.6-5.0); SODIUM 130.1 mmol/L (137-145)
[2016-10-20] MEDS: CLINDAMYCIN 600 MG/D5W RTU 600 MG/50 ML RTUPB IV SCH (05:15)
[2016-10-20] MEDS: OXYCODONE HCL IR 5 MG TABLET PO PRN (05:15)
[2016-10-20] MEDS: LANSOPRAZOLE 30 MG TAB.RAP.DR PO SCH (05:15)
[2016-10-20 08:16] VITALS: BP 166/79
[2016-10-20] MEDS: ENOXAPARIN SODIUM INJ 40 MG/0.4 ML DISP.SYRIN SUBCUT SCH (09:54)
[2016-10-20] MEDS: FLUTICASONE/SALMETEROL DISKUS 250-50 MCG/DOSE IH SCH (09:59)
[2016-10-20] MEDS: METOPROLOL SUCCINATE 50 MG TAB.SR.24H PO SCH (10:00)
[2016-10-20] MEDS: ASPIRIN 81 MG TABLET, CHEWABLE PO SCH (10:00)
[2016-10-20] MEDS ORDERED: DONEPEZIL HCL 5 MG TABLET PO SCH (10:00)
[2016-10-20] MEDS: CLOPIDOGREL BISULFATE 75 MG TABLET PO SCH (10:00)
[2016-10-20] MEDS: DOCUSATE SODIUM 100 MG CAPSULE PO SCH (10:00)
--- NOTE | 2016-10-20 10:37 | PDOC DISCHARGE SUMMARY ---
General - Admit/Disc Date/PCP Admission Date/Primary Care Provider: 10/18/16 18:24 LEEROY MCNAIR MD Discharge Date: 10/20/16 - Discharge Diagnosis (1) Sepsis Is this a current diagnosis for this admission?: Yes (2) Acute sinusitis Is this a current diagnosis for this admission?: Yes (3) Acute renal failure Is this a current diagnosis for this admission?: Yes (4) COPD (chronic obstructive pulmonary disease) Is this a current diagnosis for this admission?: Yes (5) Senile dementia Is this a current diagnosis for this admission?: Yes (6) Diabetes mellitus type 2 in nonobese Is this a current diagnosis for this admission?: Yes (7) Abdominal aortic aneurysm Is this a current diagnosis for this admission?: Yes (8) Coronary artery disease Is this a current diagnosis for this admission?: Yes (9) Essential hypertension Is this a current diagnosis for this admission?: Yes (10) Peripheral vascular disease Is this a current diagnosis for this admission?: Yes - Additional Information Discharge Diet: Cardiac, Diabetic Discharge Activity: Activity As Tolerated, Balance Activity w/Rest, Slowly Increase Activity Home Medications: Aspirin 81 mg PO DAILY 05/01/15 Atorvastatin Calcium [Lipitor 20 mg Tablet] 20 mg PO QHS 05/01/15 Clopidogrel Bisulfate [Plavix] 75 mg PO DAILY 05/01/15 Diazepam [Valium] 20 mg PO QHS 05/01/15 Gabapentin [Neurontin] 600 mg PO QHS 05/01/15 Lisinopril 40 mg PO DAILY 05/01/15 Metoprolol Succinate 200 mg PO DAILY 05/01/15 Nitroglycerin [Nitrostat 0.4 mg (1/150 Gr) Tabs 25/Bottle] 1 tab SL Q5MP PRN Omeprazole 20 mg PO QAM 05/01/15 Donepezil HCl 5 mg PO DAILY 10/18/16 Oxycodone HCl 15 mg PO Q4HP PRN MDD 3 TAB 10/18/16 Cyanocobalamin (Vitamin B-12) [Vitamin B-12 1000 mcg Tablet] 1,000 mcg PO DAILY 10/19/16 Fluticasone/Salmeterol [Advair 250-50 Diskus 14 Dose/Diskus] 1 inh IH BID #1 inhaler 10/20/16 Ipratropium/Albuterol Sulfate [Combivent Respimat 4 gm Mdi] 1 puff IH Q4 PRN #1 aer.w.adap 10/20/16 Levofloxacin [Levaquin 750 mg Tablet] 750 mg PO DAILY #10 tab 10/20/16 Additional Information: Follow-up final blood culture results and urine culture results as outpatient with primary care physician in 1 week. Stop smoking. History of Present Illness Patient complains of: Fall History of Present Illness: MONIQUE CALLAHAN is a 71 year old male, w/ history of dementia, COPD, CHF has runny nose and sinus congestion for 3 weeks. There is mild headache. He is not on the home oxygen. He has a mild cough productive of yellowish phlegm. There is no sore throat associated. No hemoptysis. There is no pleurisy, shortness of breath, dizziness or lightheadedness, but admits having some facial pressure intermittently. Denies any chills or fever as well. Earlier the day prior to admission patient fell on the floor but without any significant injuries. He was having generalized weakness and unable to get up. He was found by his and was brought to the hospital. In the emergency room where workup was performed he has lactic acid level was mildly elevated as well as brain natruretic peptide. Chest x-ray shows chronic interstitial findings. He does have a history of CHF. Emergency physician thought it was a combination of sepsis as well as heart failure and so antibiotic was given but no aggressive IV fluid management was done. Patient did have a fever in the emergency room. He denies recent travel nor any insect bites. Hospital Course Hospital Course: The patient was admitted to telemetry. The patient was started on intravenous antibiotics for sepsis and acute sinusitis as a cause. Patient was hydrated with saline. The following day the patient developed some chest congestion and wheezing probably attributed to COPD exacerbation. He was CT scan of the chest is suggestive of fibrosis. He was begun on metered-dose inhalers and bronchodilators and he did well the following morning. Cultures were performed and today were negative. Patient likewise had a CT of the abdomen and pelvis showing abdominal aortic aneurysm with reported thrombus. Patient is not a candidate for chronic anticoagulation due to fall risk and dementia. He was maintained on antiplatelet therapy. The patient remained afebrile all throughout. With hydration creatinine was stable. Likely this creatinine is baseline on presentation. Patient has been adamant about going home for the past 48 hours. Family eventually decided to bring him back home. emergency planner was consulted for home physical therapy with home health. They were advised to follow-up results of cultures and an outpatient basis. There were likewise advised to return to the emergency room if symptoms recur. Physical Exam Vital Signs: Temp Pulse Resp BP Pulse Ox 98.2 F 66 16 166/79 H 98 10/20/16 03:51 10/20/16 08:48 10/20/16 08:48 10/20/16 07:59 10/20/16 08:48 Intake & Output 10/19/16 10/20/16 10/21/16 06:59 06:59 06:59 Intake Total 300 3158 Output Total 300 Balance 300 2858 Weight 76.6 kg 79.1 kg General appearance: PRESENT: no acute distress, cooperative Head exam: PRESENT: normocephalic Eye exam: PRESENT: EOMI Mouth exam: PRESENT: moist, neck supple Neck exam: ABSENT: JVD Respiratory exam: ABSENT: rhonchi, wheezes Cardiovascular exam: PRESENT: RRR. ABSENT: gallop GI/Abdominal exam: PRESENT: normal bowel sounds, soft. ABSENT: distended, tenderness Extremities exam: ABSENT: pedal edema Neurological exam: PRESENT: alert, awake Skin exam: PRESENT: dry, warm. ABSENT: cyanosis Results Laboratory Results: 10/19/16 04:48 10/20/16 04:37 10/20/16 04:37 Sodium 130.1 L Potassium 4.8 Chloride 98 Carbon Dioxide 26 Anion Gap 6 BUN 20 Creatinine 1.53 H Est GFR ( Amer) 55 L Est GFR (Non-Af Amer) 45 L Glucose 96 Calcium 8.2 L Impressions: Chest X-Ray 10/18/16 13:53 IMPRESSION: Few Vicki lines at the lung bases could indicate mild interstitial edema. No pleural effusions or alveolar edema. No cardiomegaly Head CT 10/18/16 13:53 IMPRESSION: No acute findings. Small vessel white matter disease with old lacunar infarct in the left caudate. Chest/Abdomen CTA 10/18/16 15:45 IMPRESSION: 1. No acute pulmonary embolus identified. 2. There is some parenchymal scarring and cystic changes noted the lower lobe this could be represent an of the underlying pulmonary fibrosis versus new parenchymal scarring related to chronic obstructive pulmonary disease. There is some parenchymal scarring noted throughout the right upper lobe. Some cystic changes seen in both upper lobes suggestive of emphysema. There is a 1.6 cm nodular like opacity seen in the right upper lobe, follow-up recommendations of the below. No focal consolidations. Abdomen/Pelvis CT 10/18/16 15:46 IMPRESSION: 1. No acute abnormality identified within the abdomen pelvis 2. Aneurysmal dilatation of the infrarenal abdominal aorta measuring 3.4 x 3.3 cm in greatest AP and transverse dimension. Mural thrombus noted within the aneurysm sac. No dissection. SMA and celiac and renal arteries are patent. The LANDY origin appears occluded and fills via collateral filling. 3. 1.7 cm nodule in the left adrenal gland. Not properly characterized on this study. Qualifiers PATEINT BEING DISCHARGED WITH ANY OF THE FOLLOWING DIAGNOSIS?: No Plan Discharge Plan: Follow-up with primary care physician in 1 week. Time Spent: Less than 30 Minutes
== END 2016-10-20 11:39 | disposition home health service (06) | DRG 872 ==
LOC: ER 12:46 → EH 18:24 → UNDOADMIN 18:51 → EH 19:45 → 5 19:45
DX: A41.9 Sepsis, unspecified organism (principal); N17.9 Acute kidney failure, unspecified; J44.1 Chronic obstructive pulmonary disease with (acute) exacerbation; J01.90 Acute sinusitis, unspecified; I50.9 Heart failure, unspecified; F03.90 Unspecified dementia, unspecified severity, without behavioral disturbance, psychotic disturbance, mood disturbance, and anxiety; E11.9 Type 2 diabetes mellitus without complications; I71.4 Abdominal aortic aneurysm, without rupture; I25.10 Atherosclerotic heart disease of native coronary artery without angina pectoris; I10 Essential (primary) hypertension; I73.9 Peripheral vascular disease, unspecified; Z79.82 Long term (current) use of aspirin; Z79.899 Other long term (current) drug therapy; Z79.02 Long term (current) use of antithrombotics/antiplatelets; I25.2 Old myocardial infarction; Z96.642 Presence of left artificial hip joint; F17.200 Nicotine dependence, unspecified, uncomplicated
CPT/HCPCS: 36415; 70450; 71010; 71275; 74177; 80048; 80053; 81001; 82803; 82962; 83605; 83880; 84484; 85025; 85610; 87040; 87086; 93005; 93010; 94640; 96365; 99285; J1650; J1956; J3490; J7030; J7620

== ENCOUNTER 2017-04-16 06:30 | Inpatient (IN) | payer MEDICARE, BC ==
--- NOTE | 2017-04-16 06:39 | ER Document Report ---
ED General - General Mode of Arrival: Medic Information source: Patient TRAVEL OUTSIDE OF THE [place] IN LAST 30 DAYS: No <CHRIS HENRY - Last Filed: 04/16/17 08:50> <NIEVES MILAN - Last Filed: 04/16/17 15:02> - General Stated Complaint: GENERAL WEAKNESS Notes: Patient is a 72-year-old male who presents to the emergency department today with complaints of generalized pain all over. Patient is a poor historian so most of the history is being given by EMS. EMS reports a BGL of 245 on arrival with a heart rate in the 120s. History is limited. (CHRIS HENRY) - Related Data Allergies/Adverse Reactions: Penicillins Allergy (Verified 04/16/17 07:00) unknown reaction from a child Home Medications: Current Home Medications Albuterol Sulfate [Proair HFA] 2 puff IN Q4HP PRN 04/16/17 [History] Clopidogrel Bisulfate [Clopidogrel] 75 mg PO DAILY 04/16/17 [History] Fluticasone/Salmeterol [Advair 250-50 Diskus 14 Dose/Diskus] 1 inh IH Q12HP PRN 04/16/17 [History] Lorazepam [Ativan 0.5 mg Tablet] 0.25 mg PO Q12 04/16/17 [History] Ondansetron [Ondansetron Odt] 4 mg PO Q6HP PRN 04/16/17 [History] Saccharomyces Boulardii [Florastor] 250 mg PO BID 04/16/17 [History] Saccharomyces Boulardii [Probiotic] 250 mg PO DAILY 04/16/17 [History] Past Medical History - General Information source: Patient - Social History Smoking Status: Never Smoker Cigarette use (# per day): No Frequency of alcohol use: None Drug Abuse: None Lives with: Family Family History: None - Past Medical History Cardiac Medical History: Reports: Hx Congestive Heart Failure, Hx Coronary Artery Disease, Hx Heart Attack - x2, last one approx 4 yrs ago, Hx Hypertension - medicated, Hx Peripheral Vascular Disease Pulmonary Medical History: Reports: Hx COPD Endocrine Medical History: Reports: Hx Diabetes Mellitus Type 2 Past Surgical History: Reports: Hx Open Heart Surgery, Hx Orthopedic Surgery - left hip replacement, Other - Cataract surgery, femoral popliteal bypass <CHRIS HENRY - Last Filed: 04/16/17 08:50> Review of Systems - Review of Systems -: Yes ROS unobtainable due to patient's medical condition - poor historian, just complains of "pain all over" <CHRIS HENRY - Last Filed: 04/16/17 08:50> Physical Exam - Vital signs Interpretation: Hypertensive, Tachycardic - General General appearance: Other - Drowsy but easily arousable In distress: None - HEENT Head: Normocephalic, Atraumatic Eyes: Normal Pupils: PERRL - Respiratory Respiratory status: No respiratory distress Chest status: Nontender Breath sounds: Normal Chest palpation: Normal - Cardiovascular Rhythm: Regular, Tachycardia Heart sounds: Normal auscultation Murmur: No - Abdominal Inspection: Normal Distension: No distension Bowel sounds: Normal Tenderness: Tender - Mild diffuse Organomegaly: No organomegaly - Extremities General upper extremity: Normal inspection, Normal ROM General lower extremity: Normal inspection, Normal ROM - Neurological Cognition: Confused [place] Coma Scale Eye Opening: Spontaneous [place] Coma Scale Verbal: Confused [place] Coma Scale Motor: Obeys Commands [place] Coma Scale Total: 14 - Psychological Associated symptoms: Normal affect <NIEVES MILAN - Last Filed: 04/16/17 15:02> - Vital signs Vitals: Temp 98.5 F 04/16/17 06:35 Course - Laboratory Result Diagrams: 04/16/17 07:05 04/16/17 07:05 <CHRIS HENRY - Last Filed: 04/16/17 08:50> - Laboratory Result Diagrams: 04/16/17 07:05 04/16/17 07:05 <NIEVES MILAN - Last Filed: 04/16/17 15:02> - Re-evaluation Re-evalutation: 04/16/17 08:52 is now at bedside providing additional history. states that the patient was admitted to [facility] "Thursday before last" for sepsis. states the patient was very hypertensive during that admission, staying around the 210s over 100s and it was only brought down with morphine. Patient has a history of COPD and hypertension according to the . (CHRIS HENRY) Patient with no acute findings on imaging. Mild acute renal insufficiency. Patient has had hypertension. initially told me that the only thing that would bring it down is pain medication. The patient had persistent nausea. It only seemed to improve after the patient was given metoprolol which brought down his blood pressure and heart rate. Patient is supposed to take metoprolol 200 in the morning and did not take it today due to nausea. I do not find any acute issue on imaging. The patient has a history of dementia and is not helpful with history. Patient was discussed with the hospitalist service and will be admitted for mild acute renal insufficiency and accelerated hypertension. (NIEVES MILAN) - Vital Signs Vital signs: Temp Pulse Resp BP Pulse Ox 98.5 F 14 175/100 H 95 04/16/17 06:35 04/16/17 14:16 04/16/17 14:16 04/16/17 14:16 - Laboratory Laboratory results interpreted by me: 04/16/17 04/16/17 04/16/17 07:04 07:05 07:05 WBC 15.5 H RDW 14.4 H Seg Neutrophils % 87.0 H Lymphocytes % 7.6 L Absolute Neutrophils 13.5 H VBG pH Chloride 97 L BUN 21 H Creatinine 1.81 H Est GFR ( Amer) 45 L Est GFR (Non-Af Amer) 37 L Glucose 175 H POC Glucose 178 H Urine Protein Urine Ketones 04/16/17 04/16/17 08:16 08:58 WBC RDW Seg Neutrophils % Lymphocytes % Absolute Neutrophils VBG pH 7.45 H Chloride BUN Creatinine Est GFR ( Amer) Est GFR (Non-Af Amer) Glucose POC Glucose Urine Protein 100 H Urine Ketones TRACE H Discharge <CHRIS HENRY - Last Filed: 04/16/17 08:50> - Discharge Admitting Provider: Hospitalist [facility] Unit Admitted: [facility] <NIEVES MILAN - Last Filed: 04/16/17 15:02> - Discharge Clinical Impression: Accelerated hypertension Vomiting Qualifiers: Vomiting type: unspecified Vomiting Intractability: non-intractable Nausea presence: with nausea Qualified Code(s): R11.2 - Nausea with vomiting, unspecified Condition: Stable Disposition: ADMITTED INPATIENT Referrals: LEEROY MCNAIR MD [Primary Care Provider] - Follow up as needed Scribe Attestation: 04/16/17 15:02 I personally performed the services described in the documentation, reviewed and edited the documentation which was dictated to the scribe in my presence, and it accurately records my words and actions. (NIEVES MILAN
[2017-04-16] MEDS ORDERED: NORMAL SALINE 1000 ML 1,000 ML IV ONE (06:57)
[2017-04-16] MEDS ORDERED: ONDANSETRON HCL INJ/PF 4 MG/2 ML SDV ONE (07:10)
[2017-04-16] MEDS ORDERED: ONDANSETRON HCL INJ/PF 4 MG/2 ML SDV IV ONE (07:10)
[2017-04-16 07:28] LABS: ABSOLUTE BASOPHILS # (AUTO) 0.1 10^3/uL (0.0-0.2); ABSOLUTE LYMPHOCYTES (AUTO) 1.2 10^3/uL (0.5-4.7); ABSOLUTE MONOCYTES (AUTO) 0.8 10^3/uL (0.1-1.4); ABSOLUTE NEUT (AUTO) 13.5 10^3/uL (1.7-8.2); BASOPHILS % (AUTO) 0.3 % (0-2); EOSINOPHILS % (AUTO) 0.1 % (0-6); HEMATOCRIT 46.9 % (37.9-51.0); HEMOGLOBIN 15.9 g/dL (13.5-17.0); HGB HCT DIFFERENCE 0.8; LYMPHOCYTES % (AUTO) 7.6 % (13-45); MEAN CORPUSCULAR HEMOGLOBIN 29.4 pg (27.0-33.4); MEAN CORPUSCULAR HGB CONC 33.8 g/dL (32.0-36.0); MEAN CORPUSCULAR VOLUME 87 fl (80-97); RED CELL DISTRIBUTION WIDTH 14.4 % (11.5-14.0); WHITE BLOOD COUNT 15.5 10^3/uL (4.0-10.5)
--- NOTE | 2017-04-16 07:31 | EKG REPORT ---
SEVERITY:- ABNORMAL ECG - SINUS TACHYCARDIA VENTRICULAR BIGEMINY PROBABLE LEFT ATRIAL ABNORMALITY : Confirmed by: Mila Staley 16-Apr-2017 07:30:55
[2017-04-16 07:37] LABS: PROTHROMBIN TIME 13.8 SEC (11.4-15.4)
[2017-04-16 07:50] LABS: ALANINE AMINOTRANSFERASE 35 U/L (21-72); ALBUMIN 4.1 g/dL (3.5-5.0); ALKALINE PHOSPHATASE 116 U/L (38-126); ANION GAP 13 (5-19); ASPARTATE AMINO TRANSFERASE 17 U/L (17-59); BILIRUBIN,DIRECT 0.3 mg/dL (0.0-0.4); BILIRUBIN,TOTAL 0.7 mg/dL (0.2-1.3); BLOOD UREA NITROGEN 21 mg/dL (7-20); CALCIUM 9.9 mg/dL (8.4-10.2); CARBON DIOXIDE 29 mmol/L (22-30); CHLORIDE 97 mmol/L (98-107); CREATININE RESULT 1.81 mg/dL (0.52-1.25); GLUCOSE 175 mg/dL (75-110); POTASSIUM 3.8 mmol/L (3.6-5.0); SODIUM 138.9 mmol/L (137-145); TOTAL PROTEIN 7.2 g/dL (6.3-8.2)
[2017-04-16] MEDS ORDERED: MORPHINE SULFATE 10 MG/ML INJ IV ONE ×2 (08:21→10:34)
[2017-04-16] MEDS ORDERED: METOCLOPRAMIDE HCL INJ/PF 10 MG/2 ML SDV IV ONE (08:21)
[2017-04-16 08:38] LABS: APPEARANCE,URINE SLIGHTLY-CLOUDY; BILIRUBIN,URINE NEGATIVE (NEGATIVE); GLUCOSE, URINE NEGATIVE (NEGATIVE); KETONES,URINE TRACE mg/dL (NEGATIVE); LEUKOCYTE ESTERASE,URINE NEGATIVE (NEGATIVE); NITRITE,URINE NEGATIVE (NEGATIVE); PROTEIN,URINE 100 mg/dL (NEGATIVE); URINE SPECIFIC GRAVITY 1.017; UROBILINOGEN,URINE NEGATIVE mg/dL (<2.0)
--- NOTE | 2017-04-16 09:06 | RADIOLOGY REPORT (SQ) ---
EXAM DESCRIPTION: CT ABD/PELVIS NO ORAL OR IV COMPLETED DATE/TIME: 04/16/2017 7:57 am REASON FOR STUDY: abd pain, nausea COMPARISON: CT abdomen pelvis 10/18/2016 CT chest 10/18/2016 TECHNIQUE: CT scan of the abdomen and pelvis performed without intravenous or oral contrast. Images reviewed with lung, soft tissue, and bone windows. Reconstructed coronal and sagittal MPR images revi ewed. All images stored on PACS. All CT scanners at this facility use dose modulation, iterative reconstruction, and/or weight based d osing when appropriate to reduce radiation dose to as low as reasonably achievable (ALARA). [facility]: Dose Right [facility]: CareDose [facility]: Dose Right [facility]: Teradose 4D [facility]: Smart [employer] RADIATION DOSE: CT Rad equipment meets quality standard of care and radiation dose reduction techniq ues were employed. CTDIvol: 11.6 mGy. DLP: 614 mGy-cm.mGy. LIMITATIONS: None. FINDINGS: LOWER CHEST: No significant findings. No nodules or infiltrates. NON-CONTRASTED LIVER, SPLEEN, ADRENALS: Uncontrasted images of the liver and spleen are unremarkable. Right adrenal gland unremarkable. Stable 1.7 cm left adrenal nodule with areas of fatty density, l ikely a benign angio myelolipoma. PANCREAS: No masses. No peripancreatic inflammatory changes. GALLBLADDER: Single calcified stone in the gallbladder axial image 23. No gallbladder wall thickenin g or pericholecystic fluid. RIGHT KIDNEY AND URETER: No suspicious masses. Assessment limited by lack of IV contrast. 1.2 cm rig ht midpole renal cortical cyst. No significant calcifications. No hydronephrosis or hydroureter. LEFT KIDNEY AND URETER: No suspicious masses. Assessment limited by lack of IV contrast. No signifi cant calcifications. No hydronephrosis or hydroureter. AORTA AND RETROPERITONEUM: Post aorto bi-iliac graft for treatment of infrarenal abdominal aortic ane urysm. The abdominal aorta above the level of the graft, at the level of the renal arteries measures 3.3 cm in diameter, similar compared to 10/02/2016. Ectasia of the bilateral common iliac arteries, j ust distal to the aorto bi-iliac graft. Both the right and left proximal common iliac arteries measu re 2 cm in diameter, similar compared to 10/18/2016 BOWEL AND PERITONEAL CAVITY: No obvious masses or inflammatory changes. No free fluid. APPENDIX: Normal. PELVIS, BLADDER, AND ABDOMINAL WALL:No abnormal masses. No free fluid. Bladder normal. BONES: Old left hip replacement. Bones are osteopenic. No lumbar compression deformity. OTHER: No other significant finding. IMPRESSION: NO SIGNIFICANT OR ACUTE PROCESS IN THE ABDOMEN OR PELVIS. COMMENT: Quality ID # [id number]: Final reports with documentation of one or more dose reduction techniques (e.g., Automated exposure control, adjustment of the mA and/or kV according to patient size, use of iterative reconstruction technique) TECHNICAL DOCUMENTATION: JOB ID: [id number] [employer]- All Rights Reserved
--- NOTE | 2017-04-16 09:12 | RADIOLOGY REPORT (SQ) ---
EXAM DESCRIPTION: CT HEAD WITHOUT COMPLETED DATE/TIME: 04/16/2017 7:57 am REASON FOR STUDY: AMS, possible fall COMPARISON: CT brain 10/18/2016 TECHNIQUE: Axial images acquired through the brain without intravenous contrast. Images reviewed wi th bone, brain and subdural windows. Images stored on PACS. All CT scanners at this facility use dose modulation, iterative reconstruction, and/or weight based d osing when appropriate to reduce radiation dose to as low as reasonably achievable (ALARA). [facility]: Dose Right [facility]: CareDose [facility]: Dose Right [facility]: Teradose 4D [facility]: Smart [employer] RADIATION DOSE: CT Rad equipment meets quality standard of care and radiation dose reduction techniq ues were employed. CTDIvol: 64.6 mGy. DLP: 1163 mGy-cm. mGy. LIMITATIONS: None. FINDINGS: VENTRICLES: Normal size and contour. CEREBRUM: No masses. No hemorrhage. No midline shift. No evidence for acute infarction. Extensive areas of low density in the white matter most likely chronic small vessel ischemic changes. Old lacu kaci infarct in the left caudate. CEREBELLUM: No masses. No hemorrhage. No alteration of density. No evidence for acute infarction. EXTRAAXIAL SPACES: No fluid collections. No masses. ORBITS AND GLOBE: No intra- or extraconal masses. Normal contour of globe without masses. CALVARIUM: No fracture. PARANASAL SINUSES: Minimal debris in the inferior right maxillary sinus SOFT TISSUES: No mass or hematoma. OTHER: No other significant finding. 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 No acute findings. EVIDENCE OF ACUTE STROKE: NO. COMMENT: Quality ID # [id number]: Final reports with documentation of one or more dose reduction techniques (e.g., Automated exposure control, adjustment of the mA and/or kV according to patient size, use of iterative reconstruction technique) TECHNICAL DOCUMENTATION: JOB ID: [id number] [employer]- All Rights Reserved
[2017-04-16 09:15] LABS: VENOUS BLOOD BASE EXCESS 5.3 mmol/L; VENOUS BLOOD PH 7.45 (7.30-7.42)
--- NOTE | 2017-04-16 09:20 | RADIOLOGY REPORT (SQ) ---
EXAM DESCRIPTION: CHEST PA/LAT COMPLETED DATE/TIME: 04/16/2017 8:06 am REASON FOR STUDY: AMS, weakness COMPARISON: CT chest 10/18/2016 Two-view chest 06/20/2008 EXAM PARAMETERS: NUMBER OF VIEWS: two views TECHNIQUE: Digital Frontal and Lateral radiographic views of the chest acquired. RADIATION DOSE: NA LIMITATIONS: none FINDINGS: LUNGS AND PLEURA: No acute infiltrates. No pleural effusion. No pneumothorax. Minimal s carring right lateral costophrenic sulcus. MEDIASTINUM AND HILAR STRUCTURES: No masses or contour abnormalities. HEART AND VASCULAR STRUCTURES: Heart normal size. No evidence for failure. BONES: No acute findings. HARDWARE: None in the chest. OTHER: No other significant finding. IMPRESSION: NO SIGNIFICANT RADIOGRAPHIC FINDING IN THE CHEST. TECHNICAL DOCUMENTATION: JOB ID: [id number] [employer]- All Rights Reserved
[2017-04-16] MEDS ORDERED: METOPROLOL TARTRATE PF/INJ 5 MG/5 ML SDV IV ONE ×3 (09:28→13:32)
[2017-04-16] MEDS ORDERED: ACETAMINOPHEN 325 MG TABLET PO PRN (13:28)
[2017-04-16] MEDS ORDERED: PROMETHAZINE HCL INJ 25 MG/1 ML VIAL IM PRN (13:33)
[2017-04-16] MEDS ORDERED: NITROGLYCERIN 0.4 MG/TAB 25 TAB/BOTTLE SL PRN (14:07)
[2017-04-16] MEDS ORDERED: DONEPEZIL HCL 5 MG TABLET PO SCH (14:15)
[2017-04-16] MEDS: HEPARIN SOD (PORCINE) 5,000 UNIT/ML 1 ML SYRINGE SUBCUT SCH ×2 (14:20→22:06)
--- NOTE | 2017-04-16 16:19 | HISTORY AND PHYSICAL E ---
History and Physical NAME: MONIQUE CALLAHAN : 1945 AGE: 72Y ADMITTED: 04/16/2017 ROOM: ED10 PRIMARY CARE PROVIDER: Dr. Girard CHIEF COMPLAINT: Nausea and vomiting. HISTORY OF PRESENT ILLNESS: The patient is a 72-year-old male with a past medical history of hypertension. The patient presented to the emergency department via EMS due to having nausea and vomiting resulting in generalized abdominal pain and diarrhea. The patient was unable to provide much history to EMS; however, on arrival to the emergency department, the patient was found to have a blood glucose of 245, heart rate of 120 and a blood pressure of 177/108. The patient was given a dose of Lopressor in the emergency department and did have gradual improvement in his blood pressure. The patient was also treated for pain and nausea and the patient has had no further vomiting or nausea since presentation. According to the patient's , the patient was admitted to [facility] the Thursday before last due to sepsis but was unable to clarify any other information. The patient's stated that the patient has very high blood pressure and at times can get into 210/100, and some of these spikes in blood pressure are related to his chronic pain and therefore it does improve with opiates. The patient himself has dementia and is not able to provide much detailed history, however, at the time examined the patient appeared much more comfortable and his blood pressure was improving. The patient did have CT of the abdomen and pelvis which revealed stable aneurysm and no other acute process. Given these findings and his significantly elevated blood pressure, the patient was referred to the hospitalist for observation and management. PAST MEDICAL HISTORY: 1. Cerebrovascular disease with previous CVA. 2. Coronary artery disease with myocardial infarction x2. 3. Hypertension. 4. Peripheral vascular disease. 5. Chronic systolic congestive heart failure. 6. Chronic obstructive pulmonary disease. 7. Vascular dementia. 8. Diabetes mellitus type 2. 9. Chronic kidney disease stage III with baseline creatinine of 1.6. PAST SURGICAL HISTORY: 1. Left hip replacement. 2. Bilateral cataract surgery. 3. Fem-pop bypass. 4. AAA repair. ALLERGIES: PENICILLIN. HOME MEDICATIONS: 1. Albuterol HFA 2 puffs inhalation q.4 hours p.r.n. 2. Aspirin 81 mg p.o. daily. 3. Lipitor 40 mg p.o. at hour of sleep. 4. Plavix 75 mg p.o. daily. 5. Vitamin B12 at 1000 mcg p.o. daily. 6. Aricept 10 mg p.o. daily. 7. Advair 250/50 one puff inhalation q.12 hours. 8. Neurontin 600 mg p.o. daily. 9. Ativan 0.25 mg p.o. q.12 hours. 10. Toprol XL 200 mg p.o. daily. 11. Nitrostat 0.4 mg sublingually q.5 minutes p.r.n. 12. Omeprazole 20 mg p.o. every a.m. 13. Zofran 4 mg p.o. q.6 hours p.r.n. 14. Oxycodone 15 mg p.o. q.6 hours p.r.n. 15. Florastor 250 mg p.o. b.i.d. SOCIAL HISTORY: The patient currently resides at home with his who is also his surrogate decision maker. Her name is Dhara who may be reached at [phone]. The patient does have advanced directives and is a DO NOT RESUSCITATE and would like to continue that while inpatient. The patient does smoke daily but not as much as used to. The patient has an approximately 55-year pack history. No alcohol use or illicit drug use. FAMILY MEDICAL HISTORY: The patient is uncertain of any medical problems that run in his family. Both parents are , assumed to be with coronary artery disease. The patient does have children who are healthy. The patient has no living siblings. Uncertain if they had chronic medical problems. REVIEW OF SYSTEMS: CONSTITUTIONAL: The patient denies any dizziness. He does admit to fevers, chills, weakness, and loss of appetite. INTEGUMENTARY: The patient denies any rash, bruising, or itching but does admit to diaphoresis. HEENT: The patient denies any vision changes or hearing loss, nasal drainage or sore throat. No headaches. CARDIOVASCULAR: The patient denies any chest pain, edema, heart palpitations. RESPIRATORY: The patient denies shortness of breath, cough, sputum production or hemoptysis. GASTROINTESTINAL: The patient admits to nausea, vomiting, diarrhea, and abdominal discomfort but denies any bloating, hematemesis, constipation, melena or hematochezia. GENITOURINARY: Denies any hematuria, pyuria or dysuria. MUSCULOSKELETAL: The patient does have chronic joint pains associated with osteoarthritis. NEUROLOGICAL: No seizures, tremors, or loss of consciousness. HEMATOLOGICAL: Denies any dg bleeding or easy bruising. ENDOCRINE: Denies any recent weight changes. PSYCHIATRIC: Denies suicidal or homicidal ideations. The rest of review of the other organ systems is negative. PHYSICAL EXAMINATION: GENERAL: On examination, the patient is a frail, chronically ill appearing 72-year-old male who is awake, alert. He is oriented to person, place, time, and situation. He is verbal, conversational, and does not appear to be in any acute distress. VITAL SIGNS: Temperature 98.5, pulse 88, respirations 14, blood pressure is 151/86, oxygen saturation is 95% on room air. SKIN: Warm and dry. No rash. He is not diaphoretic. HEENT: Pupils equal, round, reactive to light and accommodation. Conjunctivae are pink. Sclerae nonicterus. No mouth lesions. Tongue is midline. NECK: Supple. There is no JVD. No palpable lymphadenopathy or thyromegaly. CARDIOVASCULAR: Heart is regular. There is no murmur or rub. CHEST: Clear, symmetrical, unlabored. ABDOMEN: Soft, nontender, nondistended. Bowel sounds are present. No palpable organomegaly. BACK: No CVA tenderness or sacral edema. EXTREMITIES: No clubbing, cyanosis, edema, or peripheral signs of embolization. Pedal pulses +1 noted bilaterally. PSYCHIATRIC: The patient is a little delayed with his dementia. DIAGNOSTICS: Lab values are as follows: Hematology obtained on 04/16/2017: WBCs are *------*, hemoglobin is 15.9, hematocrit is 46.9, platelet count is 177,000. Coagulation obtained on 04/16/2017: PT is 13.8. INR is 0.99. Venous blood gas obtained on 04/16/2017: The pH is 7.45, pCO2 is 44, bicarb is 30. Chemistry obtained on 04/16/2017: Sodium is 138, potassium 3.8, chloride is 97, carbon dioxide 29, BUN 21, creatinine is 1.8, glucose 175, lactic acid 1.4, calcium is 9.9, bilirubin 0.7, AST 17, ALT of 35, alk phos 116, troponin 0.015, total protein is 12.2, albumin 4.1. Urinalysis obtained on 04/16/2017: Color yellow, appearance slightly cloudy, pH 7.0, specific gravity 1.017, protein 100, glucose negative, ketones trace, occult blood negative, nitrate negative, bilirubin negative, urobilinogen negative, leukocyte esterase negative, WBC 1, RBC 5, mucous rare, ascorbic acid negative. Microbiology: Blood and urine cultures obtained on 04/16/2017 are pending. EKG obtained on 04/16/[address] of the abdomen and pelvis obtained on 04/16/2017 reveals no significant acute process within the abdomen and pelvis. 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 Chest x-ray obtained on 04/16/2017 reveals no significant radiographic finding of the chest. Head CT obtained on 04/16/2017 reveals white matter disease with old left *------* infract. IMPRESSION AND PLAN: 1. Hypertensive emergency most likely due to an underlying viral process and the patient's inability to tolerate his medications. The patient's nausea and vomiting are much improved. Will continue antiemetic therapy and follow. Resume the patient's home blood pressure medications. 2. Acute viral gastroenteritis. Hopefully will run a quick course. Will continue antiemetic therapy. The patient has received a bolus in the emergency department. The patient's creatinine is not far from baseline, so will defer IV antibiotics for now. 3. Cerebrovascular disease. Will continue the patient's aspirin. 4. Hyperlipidemia. Will continue the patient's statin. 5. Opiate dependency continuous. Will continue the patient's home medications. Do have a suspicion that some of the patient's symptoms may be due to opiate withdraw. Due to his inability to keep down medications due to his AG. DISPOSITION: The patient is a DO NOT RESUSCITATE/DO NOT INTUBATE. Pending patient's symptomatology and diagnostic findings, will reevaluate in the a.m. Will admit the patient to inpatient IMCU as the patient's expected length of stay should not surpass 2 midnights. Time spent on this admission including assessment, plan, physical examination, patient education, family meeting, review of records is 60 minutes. DICTATING PHYSICIAN: CHEYANNE CHAND NP [id number] PHY#: [id number] ID: [id number] JOB#: [id number] ACCT: [id number] cc:KARL ORTEGA M.D., MICHAEL NP >
[2017-04-16] MEDS: DOCUSATE SODIUM 100 MG CAPSULE PO SCH (17:22)
[2017-04-16] MEDS ORDERED: (PENDING PHARMACY ID) (Saccharomyces Boulardii [Florastor] 250 MG) PO SCH (18:00)
[2017-04-16] MEDS ORDERED: DONEPEZIL HCL 5 MG TABLET PO ONE (18:00)
[2017-04-16] MEDS ORDERED: (PENDING PHARMACY ID) (Metoprolol Succinate [Metoprolol Succinate] 100 MG) PO SCH (22:00)
[2017-04-16] MEDS ORDERED: FAMOTIDINE 20 MG TABLET PO SCH (22:00)
[2017-04-16] MEDS: LORAZEPAM 0.5 MG TABLET PO SCH (22:02)
[2017-04-16] MEDS: GABAPENTIN 300 MG CAPSULE PO SCH (22:02)
[2017-04-16] MEDS: METOPROLOL SUCCINATE 50 MG TAB.SR.24H PO SCH (22:04)
[2017-04-16] MEDS: ATORVASTATIN CALCIUM 20 MG TABLET PO SCH (22:05)
[2017-04-16 22:07] LABS: ANION GAP 9 (5-19); BLOOD UREA NITROGEN 21 mg/dL (7-20); CALCIUM 8.9 mg/dL (8.4-10.2); CARBON DIOXIDE 26 mmol/L (22-30); CHLORIDE 103 mmol/L (98-107); CREATININE RESULT 1.62 mg/dL (0.52-1.25); GLUCOSE 104 mg/dL (75-110); MAGNESIUM 1.8 mg/dL (1.6-2.3); POTASSIUM 3.8 mmol/L (3.6-5.0); SODIUM 138.1 mmol/L (137-145)
[2017-04-16] MEDS: FLUTICASONE/SALMETEROL DISKUS 250-50 MCG/DOSE IH SCH (22:07)
[2017-04-16] MEDS ORDERED: POTASSIUM CHLORIDE 10 MEQ TABLET.SA PO ONE (22:22)
[2017-04-16 23:23] LABS: CREATINE KINASE MB 0.63 ng/mL (<4.55); TROPONIN I 0.041 ng/mL
[2017-04-16] MEDS: MAGNESIUM SULFATE/D5W 1 GM/100 ML RTUPB IV SCH (23:25)
[2017-04-17] MEDS: MAGNESIUM SULFATE/D5W 1 GM/100 ML RTUPB IV SCH (00:42)
[2017-04-17] MEDS: OXYCODONE HCL IR 5 MG TABLET PO PRN ×3 (01:06→20:12)
[2017-04-17 05:14] LABS: CREATINE KINASE MB 0.52 ng/mL (<4.55)
[2017-04-17 05:18] LABS: TROPONIN I 0.031 ng/mL
[2017-04-17] MEDS: LANSOPRAZOLE 15 MG TAB.RAP.DR PO SCH (06:38)
[2017-04-17] MEDS: HEPARIN SOD (PORCINE) 5,000 UNIT/ML 1 ML SYRINGE SUBCUT SCH ×3 (06:39→22:12)
[2017-04-17] MEDS ORDERED: GLUCAGON,HUMAN RECOMB 1 MG INJ SUBCUT PRN (10:29)
[2017-04-17] MEDS ORDERED: DEXTROSE 40% GEL 15 GM TUBE PO PRN ×2 (10:29)
[2017-04-17] MEDS ORDERED: DEXTROSE 50%-WATER 25 GM/50 ML DISP.SYRIN IV PRN ×2 (10:29)
[2017-04-17] MEDS ORDERED: FUROSEMIDE INJ/PF 20 MG/2 ML SDV IV ONE (11:15)
[2017-04-17 11:21] LABS: CREATINE KINASE MB 0.58 ng/mL (<4.55); TROPONIN I 0.019 ng/mL
[2017-04-17] MEDS: LORAZEPAM 0.5 MG TABLET PO SCH ×2 (11:39→22:11)
[2017-04-17] MEDS: CYANOCOBALAMIN (VITAMIN B-12) 1,000 MCG TABLET PO SCH (11:40)
[2017-04-17] MEDS: DOCUSATE SODIUM 100 MG CAPSULE PO SCH ×2 (11:41→17:50)
[2017-04-17] MEDS: DONEPEZIL HCL 5 MG TABLET PO SCH (11:41)
[2017-04-17] MEDS: METOPROLOL SUCCINATE 50 MG TAB.SR.24H PO SCH ×2 (11:42→22:11)
[2017-04-17] MEDS: ASPIRIN 81 MG TABLET, CHEWABLE PO SCH (11:42)
[2017-04-17] MEDS: CLOPIDOGREL BISULFATE 75 MG TABLET PO SCH (11:43)
[2017-04-17] MEDS: FLUTICASONE/SALMETEROL DISKUS 250-50 MCG/DOSE IH SCH ×2 (11:43→22:12)
[2017-04-17] MEDS ORDERED: LISINOPRIL 10 MG TABLET PO ONE (12:00)
--- NOTE | 2017-04-17 12:45 | PDOC CONSULTATION ---
Consultation Consult Date: 04/17/17 Consult reason:: gallstones History of Present Illness Admission Date/PCP: 04/16/17 13:28 KARL ORTEGA MD History of Present Illness: MONIQUE CALLAHAN is a 72 year old male Patient just discharged from [facility] and records at [facility] are in patient's chart. These records were reviewed. He has gallstones on ultrasound without gallbladder wall thickening or pericholecystic fluid. He also had a HIDA scan which was normal. Pt denies abdominal pains. Past Medical History Cardiac Medical History: Reports: Congestive Heart Failure, Coronary Artery Disease, Myocardial Infarction - x2, last one approx 4 yrs ago, Hypertension - medicated, Peripheral Vascular Disease Pulmonary Medical History: Reports: Chronic Obstructive Pulmonary Disease (COPD) Denies: Asthma Neurological Medical History: Denies: Seizures Endocrine Medical History: Reports: Diabetes Mellitus Type 2 GI Medical History: Denies: Hepatitis, Hiatal Hernia Psychiatric Medical History: Reports: Depression Hematology: Denies: Anemia, Sickle Cell Disease Past Surgical History Past Surgical History: Reports: Orthopedic Surgery - left hip replacement, Other - Cataract surgery, femoral popliteal bypass Denies: Pacemaker Social History Lives with: Family Smoking Status: Current Every Day Smoker Cigarettes Packs Per Day: 1 Number of Years Smokin Frequency of Alcohol Use: None Hx Recreational Drug Use: No Drugs: None Hx Prescription Drug Abuse: No - Advance Directive Resuscitation Status: Do Not Resuscitate Family History Family History: None Parental Family History Reviewed: Yes Children Family History Reviewed: No Sibling(s) Family History Reviewed.: No Medication/Allergy Home Medications: Aspirin 81 mg PO DAILY 05/01/15 Atorvastatin Calcium [Lipitor 20 mg Tablet] 40 mg PO QHS 05/01/15 Gabapentin [Neurontin] 600 mg PO QHS 05/01/15 Metoprolol Succinate 200 mg PO DAILY 05/01/15 Nitroglycerin [Nitrostat 0.4 mg (1/150 Gr) Tabs 25/Bottle] 1 tab SL Q5MP PRN Omeprazole 20 mg PO QAM 05/01/15 Donepezil HCl 10 mg PO DAILY 10/18/16 Oxycodone HCl 15 mg PO Q6HP PRN 10/18/16 Cyanocobalamin (Vitamin B-12) [Vitamin B-12 1000 mcg Tablet] 1,000 mcg PO DAILY 10/19/16 Levofloxacin [Levaquin 750 mg Tablet] 750 mg PO DAILY #10 tab 10/20/16 Albuterol Sulfate [Proair HFA] 2 puff IN Q4HP PRN 04/16/17 Clopidogrel Bisulfate [Clopidogrel] 75 mg PO DAILY 04/16/17 Fluticasone/Salmeterol [Advair 250-50 Diskus 14 Dose/Diskus] 1 inh IH Q12HP PRN 04/16/17 Lorazepam [Ativan 0.5 mg Tablet] 0.25 mg PO Q12 04/16/17 Ondansetron [Ondansetron Odt] 4 mg PO Q6HP PRN 04/16/17 Saccharomyces Boulardii [Florastor] 250 mg PO BID 04/16/17 Saccharomyces Boulardii [Probiotic] 250 mg PO DAILY 04/16/17 Allergies/Adverse Reactions: Penicillins Allergy (Verified 04/16/17 07:00) unknown reaction from a child Review of Systems Constitutional: PRESENT: other - no fever/chills Eyes: PRESENT: other - no visual/hearing problems Nose, Mouth, and Throat: PRESENT: other - no sore throat Cardiovascular: PRESENT: other - no chest pains Respiratory: PRESENT: other - no cough Gastrointestinal: PRESENT: other - no abdominal pains Musculoskeletal: PRESENT: other - no joint swelling Integumentary: PRESENT: other - no rash Neurological: PRESENT: other - no seizures Psychiatric: PRESENT: anxiety Endocrine: PRESENT: other - no polyuria/polydipsia Hematologic/Lymphatic: PRESENT: other - no easy bruisability Physical Exam Vital Signs: Temp Pulse Resp BP Pulse Ox 98.9 F 85 20 173/83 H 93 04/17/17 08:15 04/17/17 08:15 04/17/17 08:15 04/17/17 08:15 04/17/17 08:15 Intake & Output 04/16/17 04/17/17 04/18/17 06:59 06:59 06:59 Intake Total 430 Output Total 1 Balance 429 Weight 72.5 kg General appearance: PRESENT: no acute distress Head exam: PRESENT: atraumatic Eye exam: PRESENT: conjunctiva pink Ear exam: PRESENT: normal external ear exam Mouth exam: PRESENT: moist, tongue midline Neck exam: PRESENT: full ROM Respiratory exam: PRESENT: clear to auscultation rocio Cardiovascular exam: PRESENT: RRR Pulses: PRESENT: normal radial pulses Vascular exam: PRESENT: normal capillary refill GI/Abdominal exam: PRESENT: soft - nontender Rectal exam: PRESENT: deferred Extremities exam: PRESENT: full ROM Musculoskeletal exam: PRESENT: full ROM Neurological exam: PRESENT: alert, oriented to person, oriented to place, oriented to time, oriented to situation Psychiatric exam: PRESENT: anxious Focused psych exam: PRESENT: restlessness Skin exam: PRESENT: normal color, warm Results Laboratory Results: 04/16/17 21:45 04/16/17 21:45 Sodium 138.1 Potassium 3.8 Chloride 103 Carbon Dioxide 26 Anion Gap 9 BUN 21 H Creatinine 1.62 H Est GFR ( Amer) 51 L Est GFR (Non-Af Amer) 42 L Glucose 104 Calcium 8.9 Magnesium 1.8 04/16/17 04/16/17 04/17/17 21:45 21:45 03:51 Creatine Kinase 24 L < 20 L CK-MB (CK-2) 0.63 Troponin I 0.041 04/17/17 04/17/17 04/17/17 03:51 10:10 10:10 Creatine Kinase 26 L CK-MB (CK-2) 0.52 0.58 Troponin I 0.031 0.019 Impressions: Abdomen/Pelvis CT 04/16/17 06:44 IMPRESSION: NO SIGNIFICANT OR ACUTE PROCESS IN THE ABDOMEN OR PELVIS. Chest X-Ray 04/16/17 06:44 IMPRESSION: NO SIGNIFICANT RADIOGRAPHIC FINDING IN THE CHEST. 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 No acute findings. EVIDENCE OF ACUTE STROKE: NO. Assessment & Plan - Time Time Spent: 30 to 50 Minutes - Plan Summary Plan Summary: Has aymptomatic gallstones. In view of US findings of no cholecystitis and normal HIDA scan, I don't think he needs his gallbladder removed at this time.
--- NOTE | 2017-04-17 15:58 | PSYCHOLOGICAL NOTE ---
Psych Note - Psych Note Psych Note: Patient is a 72-year-old male who presents to the emergency department today with complaints of generalized pain all over. Patient is a poor historian so most of the history is being given by EMS. Psychiatric consultation was requested because the patient's disclosed suicidal act prior to arrival to [facility]. Patient has a diagnosis and takes medications for vascular dementia. Clinician asked patient and patient on event prior to arriving to [facility] ED. Patient's confirmed the patient made a suicidal gesture. Patient questioned "you mean about the gun?" Patient's confirmed this is what she was speaking about stating that it happened Thursday evening. Patient asked "yesterday?... I do not think so... Oh wait yesterday was , today is Thursday." Patient disclosed that he took the gun out "cocked it and put it to my heart" he continued to state that he did not pull the trigger because "I did not have the strength or guts." Patient's states that she does not like seeing her in this condition but that she cannot live without him. They have no children no living relatives, and really only keep to themselves. She continued to state that they have always said "quality of life is more important than quantity." It has been very difficult because patient has been in so much pain and very depressed. Patient states he can barely walk. She disclosed that she [facility] however cannot make any progress with it. She states that she just needs "somebody to help focus on fixing his food in him eating." She confirms the patient no longer has access to any more weapons and that the gun was unloaded at the time the patient held it. She continued to state that he has trouble sleeping and has nightmares. She is concerned because the doctors want to have surgery on his gallbladder; however, when they were in [place] they were told that it would not help. She is concerned on the recuperation after the surgery. Clinician asked the patient if he wanted to have surgery he stated "I am up for anything that can get me better." Clinician preformed mini mental status was within normal limits, he answered questions of abstract thinking and higher cortical processes with accuracy. 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 Patient does not meet IVC criteria per [place] GS 122C. While patient does disclose suicidal ideation patient does not have the means to carry out. Patient's has secured all weapons in the home and patient is unable to ambulate. Additionally , the patient currently does not have the physical strength to carry out any plan. Patient has a diagnosis and takes medications for vascular dementia and does disclose depression resulting from his medical decline. Placement in an inpatient psychiatric facility would be inappropriate for this patient. Medication recommendations per the psychiatric provider with [facility] are as follows: D/C Home Ativan Start Buspar 5 mg QAM and 10 mg QPM Please also note, antispychotics and benzodiazepines serve to increase symptoms in neurocognitive disorders, to include increased irritability, psychosis, aggression etc. This is a research based, which is the reason for the recommendation of discontinuing the Ativan. Thank you kindly for this consultation request.
--- NOTE | 2017-04-17 17:05 | PDOC PROGRESS REPORT ---
Subjective Progress Note for:: 04/17/17 Subjective:: Does not appear to be septic blood or urine cultures done on 16 April showed no growth for 24 hours, negative white count, discussed case with Dr. López and we reviewed his medical records and old charts. Patient has several small gallstones. at bedside very tearful stating she cannot take care of him at home anymore due to his dementia. Patient and both state he tried to kill himself with a gun the day before he came into the hospital. Asked patient why he wanted to kill himself he said he was tired of living in misery and pain. Reason For Visit: HYPERTENSIVE EMERGENCY patient's states she is unable to take care of him at home anymore due to his mind and memory. The day before patient comes to the ER he did have a gun in his home in and patient both the knowledge that he would was going to kill himself because he did not want to live like this anymore. says she cannot live with that her and we need to help get some assistance for him. Physical Exam Vital Signs: Temp Pulse Resp BP Pulse Ox 98.9 F 85 20 173/83 H 93 04/17/17 08:15 04/17/17 08:15 04/17/17 08:15 04/17/17 08:15 04/17/17 08:15 Intake & Output 04/16/17 04/17/17 04/18/17 06:59 06:59 06:59 Intake Total 430 Output Total 1 Balance 429 Weight 72.5 kg General appearance: PRESENT: no acute distress, well-developed, well-nourished Head exam: PRESENT: atraumatic, normocephalic Eye exam: PRESENT: conjunctiva pink, EOMI, PERRLA. ABSENT: scleral icterus Ear exam: PRESENT: normal external ear exam Mouth exam: PRESENT: moist, tongue midline Neck exam: ABSENT: carotid bruit, JVD, lymphadenopathy, thyromegaly Respiratory exam: PRESENT: clear to auscultation rocio. ABSENT: rales, rhonchi, wheezes Cardiovascular exam: PRESENT: RRR. ABSENT: diastolic murmur, rubs, systolic murmur Pulses: PRESENT: normal dorsalis pedis pul Vascular exam: PRESENT: normal capillary refill GI/Abdominal exam: PRESENT: normal bowel sounds, soft. ABSENT: distended, guarding, mass, organolmegaly, rebound, tenderness Rectal exam: PRESENT: deferred Extremities exam: PRESENT: full ROM. ABSENT: calf tenderness, clubbing, pedal edema Neurological exam: PRESENT: alert, awake, oriented to person, oriented to place , oriented to time, oriented to situation, CN II-XII grossly intact. ABSENT: motor sensory deficit Psychiatric exam: PRESENT: appropriate affect, normal mood. ABSENT: homicidal ideation, suicidal ideation Skin exam: PRESENT: dry, intact, warm. ABSENT: cyanosis, rash Results Laboratory Results: 04/16/17 21:45 04/16/17 21:45 Sodium 138.1 Potassium 3.8 Chloride 103 Carbon Dioxide 26 Anion Gap 9 BUN 21 H Creatinine 1.62 H Est GFR ( Amer) 51 L Est GFR (Non-Af Amer) 42 L Glucose 104 Calcium 8.9 Magnesium 1.8 04/16/17 04/16/17 04/17/17 21:45 21:45 03:51 Creatine Kinase 24 L < 20 L CK-MB (CK-2) 0.63 Troponin I 0.041 04/17/17 04/17/17 04/17/17 03:51 10:10 10:10 Creatine Kinase 26 L CK-MB (CK-2) 0.52 0.58 Troponin I 0.031 0.019 Impressions: Abdomen/Pelvis CT 04/16/17 06:44 IMPRESSION: NO SIGNIFICANT OR ACUTE PROCESS IN THE ABDOMEN OR PELVIS. Chest X-Ray 04/16/17 06:44 IMPRESSION: NO SIGNIFICANT RADIOGRAPHIC FINDING IN THE CHEST. 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 No acute findings. EVIDENCE OF ACUTE STROKE: NO. Assessment & Plan - Diagnosis (1) Gallstone Qualifiers: Cholecystitis presence: with cholecystitis Biliary obstruction: without biliary obstruction Is this a current diagnosis for this admission?: Yes Plan: Surgical consult for evaluation of cholecystectomy (2) Acute renal failure Qualifiers: Acute renal failure type: with acute tubular necrosis Qualified Code(s): N17.0 - Acute kidney failure with tubular necrosis Is this a current diagnosis for this admission?: Yes Plan: Suspect this patient would benefit from Maricarmen cystectomy. This is his third fourth hospitalization in the very short period of time. He has been evaluated with chest pain, abdominal pain, nausea vomiting, right upper quadrant tenderness. He has documented gallstones due to his age, diabetes, despite that he does not have elevated LFTs at this time or a dilated that does not mean he does not have an acute cholecystitis which personally I would recommend his gallbladder removed for he become septic and . (5) Gallstones without obstruction of gallbladder Qualifiers: Cholelithiasis location: gallbladder Cholecystitis presence: without cholecystitis Qualified Code(s): K80.20 - Calculus of gallbladder without cholecystitis without obstruction Is this a current diagnosis for this admission?: Yes Plan: I personally recommend this patient have his gallbladder removed laparoscopically (6) Accelerated hypertension Is this a current diagnosis for this admission?: Yes (7) Essential hypertension Is this a current diagnosis for this admission?: Yes (9) Senile dementia Qualifiers: Dementia behavioral disturbance: without behavioral disturbance Qualified Code(s): F03.90 - Unspecified dementia without behavioral disturbance Plan: Continue patient on dementia medications. Psych consult with the sitter to evaluate this recent incident of suicidal ideation. Feel like his is able to make healthcare decisions on his behalf. However patient has a high functioning level with a history of dementia so I do personally think he still a good candidate for surgery at this point (10) Sepsis Qualifiers: Sepsis type: sepsis due to unspecified organism Qualified Code(s): A41.9 - Sepsis, unspecified organism - Plan Summary Plan Summary: I have consulted Dr. Llamas surgeon who is aware of his situation. Since patient ate today he will be n.p.o. after midnight tonight. Dr. Quintana will evaluate him again in the morning for possible surgery.
[2017-04-17] MEDS: ONDANSETRON 4 MG TAB.RAPDIS PO PRN (20:15)
[2017-04-17] MEDS ORDERED: LISINOPRIL 10 MG TABLET PO SCH (22:00)
[2017-04-17] MEDS: ATORVASTATIN CALCIUM 20 MG TABLET PO SCH (22:11)
[2017-04-17] MEDS: GABAPENTIN 300 MG CAPSULE PO SCH (22:11)
[2017-04-18] MEDS: OXYCODONE HCL IR 5 MG TABLET PO PRN ×4 (01:48→18:33)
[2017-04-18] MEDS: HEPARIN SOD (PORCINE) 5,000 UNIT/ML 1 ML SYRINGE SUBCUT SCH ×3 (06:50→22:55)
[2017-04-18] MEDS: LANSOPRAZOLE 15 MG TAB.RAP.DR PO SCH (06:50)
[2017-04-18] MEDS: DOCUSATE SODIUM 100 MG CAPSULE PO SCH ×2 (09:50→18:33)
[2017-04-18] MEDS: CYANOCOBALAMIN (VITAMIN B-12) 1,000 MCG TABLET PO SCH (09:52)
[2017-04-18] MEDS: CLOPIDOGREL BISULFATE 75 MG TABLET PO SCH (09:52)
[2017-04-18] MEDS: ASPIRIN 81 MG TABLET, CHEWABLE PO SCH (09:52)
[2017-04-18] MEDS: LORAZEPAM 0.5 MG TABLET PO SCH ×2 (09:53→23:09)
[2017-04-18] MEDS: DONEPEZIL HCL 5 MG TABLET PO SCH (09:53)
[2017-04-18] MEDS: METOPROLOL SUCCINATE 50 MG TAB.SR.24H PO SCH ×2 (09:53→23:11)
[2017-04-18] MEDS: FLUTICASONE/SALMETEROL DISKUS 250-50 MCG/DOSE IH SCH (09:54)
[2017-04-18] MEDS: ONDANSETRON 4 MG TAB.RAPDIS PO PRN (18:32)
[2017-04-18 20:17] LABS: ABSOLUTE EOSINOPHILS # (AUTO) 0.1 10^3/uL (0.0-0.6); ABSOLUTE LYMPHOCYTES (AUTO) 1.9 10^3/uL (0.5-4.7); ABSOLUTE MONOCYTES (AUTO) 0.6 10^3/uL (0.1-1.4); ABSOLUTE NEUT (AUTO) 7.7 10^3/uL (1.7-8.2); BASOPHILS % (AUTO) 0.5 % (0-2); EOSINOPHILS % (AUTO) 0.9 % (0-6); HEMATOCRIT 40.6 % (37.9-51.0); HGB HCT DIFFERENCE 0.8; LYMPHOCYTES % (AUTO) 18.1 % (13-45); MEAN CORPUSCULAR HEMOGLOBIN 29.4 pg (27.0-33.4); MEAN CORPUSCULAR HGB CONC 33.9 g/dL (32.0-36.0); MEAN CORPUSCULAR VOLUME 87 fl (80-97); MONOCYTES % (AUTO) 5.7 % (3-13); RED BLOOD COUNT 4.68 10^6/uL (4.35-5.55); RED CELL DISTRIBUTION WIDTH 14.4 % (11.5-14.0); SEGMENTED NEUTROPHILS % (AUTO) 74.8 % (42-78); WHITE BLOOD COUNT 10.3 10^3/uL (4.0-10.5)
[2017-04-18 20:19] LABS: HEMOGLOBIN 13.8 g/dL (13.5-17.0)
[2017-04-18 20:30] LABS: ALANINE AMINOTRANSFERASE 31 U/L (21-72); ALKALINE PHOSPHATASE 84 U/L (38-126); ANION GAP 11 (5-19); ASPARTATE AMINO TRANSFERASE 16 U/L (17-59); BILIRUBIN,DIRECT 0.2 mg/dL (0.0-0.4); BILIRUBIN,TOTAL 0.6 mg/dL (0.2-1.3); BLOOD UREA NITROGEN 29 mg/dL (7-20); CALCIUM 8.4 mg/dL (8.4-10.2); CARBON DIOXIDE 24 mmol/L (22-30); CHLORIDE 102 mmol/L (98-107); CREATININE RESULT 1.61 mg/dL (0.52-1.25); GLUCOSE 143 mg/dL (75-110); POTASSIUM 4.1 mmol/L (3.6-5.0); SODIUM 136.6 mmol/L (137-145); TOTAL PROTEIN 5.4 g/dL (6.3-8.2)
[2017-04-18] MEDS: ATORVASTATIN CALCIUM 20 MG TABLET PO SCH (23:10)
[2017-04-18] MEDS: GABAPENTIN 300 MG CAPSULE PO SCH (23:10)
[2017-04-18] MEDS ORDERED: NORMAL SALINE 1000 ML 1,000 ML IV PRN (23:57)
[2017-04-19] MEDS: OXYCODONE HCL IR 5 MG TABLET PO PRN ×2 (00:01→05:26)
--- NOTE | 2017-04-19 00:05 | PDOC PROGRESS REPORT ---
Subjective Progress Note for:: 04/18/17 Subjective:: Patient reports he is feeling better and would like to go home. He has no new complaints. Patient denies chest pain, shortness of breath, abdominal pain, nausea, vomiting , fevers, chills, diarrhea, constipation, headache, new onset weakness. Reason For Visit: ACUTE RENAL FAILURE, ACCELERATED HTN Physical Exam Vital Signs: Temp Pulse Resp BP Pulse Ox 99.0 F 75 20 148/73 H 95 04/18/17 20:12 04/18/17 20:12 04/18/17 20:12 04/18/17 20:12 04/18/17 20:12 Intake & Output 04/17/17 04/18/17 04/19/17 06:59 06:59 06:59 Intake Total 070 366 7834 Output Total 1 250 Balance 698 053 9312 Weight 72.5 kg 72.6 kg Exam: General: Awake alert and oriented x3, no acute respiratory distress HEENT: AT/NC, PERRL, EOMI, oropharynx is not dry, pink, no scleral icterus, no conjunctival injection Neck: No JVD, trachea midline Chest: Clear to auscultation bilaterally, no wheezes rhonchi or rales CV: Regular rate and rhythm, normal S1 and S2, no murmur, rub, or gallop Abdomen: Soft, nontender to palpation, nondistended, active bowel sounds; no rebound, rigidity, or guarding Extremities: No cyanosis, clubbing or edema Neuro: Cranial nerves II through XII are grossly intact without focal deficits; awake alert and oriented x3 Psych: Normal mood and affect; slightly blunted Results Laboratory Results: 04/18/17 19:55 04/18/17 19:55 04/18/17 04/18/17 19:55 19:55 WBC 10.3 RBC 4.68 Hgb 13.8 D Hct 40.6 MCV 87 MCH 29.4 MCHC 33.9 RDW 14.4 H Plt Count 146 L Seg Neutrophils % 74.8 Lymphocytes % 18.1 Monocytes % 5.7 Eosinophils % 0.9 Basophils % 0.5 Absolute Neutrophils 7.7 Absolute Lymphocytes 1.9 Absolute Monocytes 0.6 Absolute Eosinophils 0.1 Absolute Basophils 0.0 Sodium 136.6 L Potassium 4.1 Chloride 102 Carbon Dioxide 24 Anion Gap 11 BUN 29 H Creatinine 1.61 H Est GFR ( Amer) 52 L Est GFR (Non-Af Amer) 43 L Glucose 143 H Calcium 8.4 Total Bilirubin 0.6 AST 16 L ALT 31 Alkaline Phosphatase 84 Total Protein 5.4 L Albumin 3.0 L 04/16/17 04/16/17 04/17/17 21:45 21:45 03:51 Creatine Kinase 24 L < 20 L CK-MB (CK-2) 0.63 Troponin I 0.041 04/17/17 04/17/17 04/17/17 03:51 10:10 10:10 Creatine Kinase 26 L CK-MB (CK-2) 0.52 0.58 Troponin I 0.031 0.019 Impressions: Abdomen/Pelvis CT 04/16/17 06:44 IMPRESSION: NO SIGNIFICANT OR ACUTE PROCESS IN THE ABDOMEN OR PELVIS. Chest X-Ray 04/16/17 06:44 IMPRESSION: NO SIGNIFICANT RADIOGRAPHIC FINDING IN THE CHEST. 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 No acute findings. EVIDENCE OF ACUTE STROKE: NO. Assessment & Plan - Diagnosis (1) Acute renal failure Qualifiers: Acute renal failure type: with acute tubular necrosis Qualified Code(s): N17.0 - Acute kidney failure with tubular necrosis Is this a current diagnosis for this admission?: Yes Plan: Patient appears to be near his baseline. Will continue with IV fluids for tonight to see if this will improve slightly. 10/18/16 10/19/16 10/20/16 14:03 04:48 04:37 Creatinine 1.59 H 1.69 H 1.53 H 04/16/17 04/16/17 04/18/17 07:05 21:45 19:55 Creatinine 1.81 H 1.62 H 1.61 H This was likely secondary to intravascular volume depletion from acute viral gastroenteritis. (2) Accelerated hypertension Is this a current diagnosis for this admission?: Yes Plan: Under fair control. Selected Entries 04/18/17 04/18/17 04/18/17 05:11 07:47 12:16 Blood Pressure 141/79 H 150/75 H 142/77 H 04/18/17 04/18/17 16:12 20:12 Blood Pressure 144/71 H 148/73 H Generic Name Dose Route Start Last Admin Trade Name Freq PRN Reason Stop Dose Admin Metoprolol Succinate 100 mg 04/16/17 22:00 04/18/17 23:11 Toprol Xl 50 Mg Tab.Sr PO 05/16/17 21:59 100 mg Q12 VLADIMIR (3) Gallstones without obstruction of gallbladder Qualifiers: Cholelithiasis location: gallbladder Cholecystitis presence: without cholecystitis Qualified Code(s): K80.20 - Calculus of gallbladder without cholecystitis without obstruction Is this a current diagnosis for this admission?: Yes Plan: Surgery has feel seen this patient and does not feel as though he requires a cholecystectomy. Patient had a HIDA scan done at [facility] which was normal. Current studies show no evidence for acute cholecystitis. (4) Abdominal aortic aneurysm Qualifiers: Presence of rupture: without rupture Qualified Code(s): I71.4 - Abdominal aortic aneurysm, without rupture Is this a current diagnosis for this admission?: Yes (5) COPD (chronic obstructive pulmonary disease) Qualifiers: COPD type: unspecified COPD Qualified Code(s): J44.9 - Chronic obstructive pulmonary disease, unspecified Is this a current diagnosis for this admission?: Yes (6) Coronary artery disease Qualifiers: Coronary Disease-Associated Artery/Lesion type: [place] artery [place] vs. transplanted heart: [place] heart Associated angina: without angina Qualified Code(s): I25.10 - Atherosclerotic heart disease of [place] coronary artery without angina pectoris Is this a current diagnosis for this admission?: Yes (7) Diabetes mellitus type 2 in nonobese Is this a current diagnosis for this admission?: Yes Plan: Fair control of blood glucose. 04/16/17 04/16/17 04/17/17 16:11 21:45 11:26 Glucose 104 POC Glucose 126 H 176 H 04/17/17 04/18/17 16:33 19:55 Glucose 143 H POC Glucose 113 H (8) Essential hypertension Is this a current diagnosis for this admission?: Yes (9) Peripheral vascular disease Is this a current diagnosis for this admission?: Yes (10) Senile dementia Qualifiers: Dementia behavioral disturbance: without behavioral disturbance Qualified Code(s): F03.90 - Unspecified dementia without behavioral disturbance Is this a current diagnosis for this admission?: Yes Plan: Continue supportive care - Time Time Spent with patient: 15-24 minutes Medications reviewed and adjusted accordingly: Yes Anticipated discharge: Home Within: within 24 hours, within 48 hours
[2017-04-19] MEDS: LANSOPRAZOLE 15 MG TAB.RAP.DR PO SCH (05:21)
[2017-04-19] MEDS: HEPARIN SOD (PORCINE) 5,000 UNIT/ML 1 ML SYRINGE SUBCUT SCH (05:31)
[2017-04-19] MEDS: FLUTICASONE/SALMETEROL DISKUS 250-50 MCG/DOSE IH SCH ×2 (06:14→10:07)
--- NOTE | 2017-04-19 09:51 | PDOC PROGRESS REPORT ---
Subjective Progress Note for:: 04/18/17 Subjective:: Does not appear to be septic blood or urine cultures done on 16 April showed no growth for 24 hours, negative white count, discussed case with Dr. López and we reviewed his medical records and old charts. Patient has several small gallstones. at bedside very tearful stating she cannot take care of him at home anymore due to his dementia. Patient and both state he tried to kill himself with a gun the day before he came into the hospital. Asked patient why he wanted to kill himself he said he was tired of living in misery and pain. Reason For Visit: CHOLECYSTITIS, ACUTE RENAL FAILURE, ACCELERATED dementia having trouble taking care of him at home Physical Exam Vital Signs: Temp Pulse Resp BP Pulse Ox 97.9 F 65 16 142/75 H 93 04/19/17 08:25 04/19/17 08:25 04/19/17 08:25 04/19/17 08:25 04/19/17 08:25 Intake & Output 04/18/17 04/19/17 04/20/17 06:59 06:59 06:59 Intake Total 733 2138 Output Total 250 Balance 483 2138 Weight 72.6 kg General appearance: PRESENT: no acute distress, well-developed, well-nourished Head exam: PRESENT: atraumatic, normocephalic Eye exam: PRESENT: conjunctiva pink, EOMI, PERRLA. ABSENT: scleral icterus Ear exam: PRESENT: normal external ear exam Mouth exam: PRESENT: moist, tongue midline Neck exam: ABSENT: carotid bruit, JVD, lymphadenopathy, thyromegaly Respiratory exam: PRESENT: clear to auscultation rocio. ABSENT: rales, rhonchi, wheezes Cardiovascular exam: PRESENT: RRR. ABSENT: diastolic murmur, rubs, systolic murmur Pulses: PRESENT: normal dorsalis pedis pul Vascular exam: PRESENT: normal capillary refill GI/Abdominal exam: PRESENT: normal bowel sounds, soft. ABSENT: distended, guarding, mass, organolmegaly, rebound, tenderness Rectal exam: PRESENT: deferred Extremities exam: PRESENT: full ROM. ABSENT: calf tenderness, clubbing, pedal edema Neurological exam: PRESENT: alert, altered, awake, oriented to person, CN II- XII grossly intact. ABSENT: oriented to place, oriented to time, oriented to situation, motor sensory deficit Psychiatric exam: PRESENT: appropriate affect, normal mood. ABSENT: homicidal ideation, suicidal ideation Focused psych exam: PRESENT: psychomotor agitation Skin exam: PRESENT: dry, intact, warm. ABSENT: cyanosis, rash Results Laboratory Results: 04/18/17 19:55 04/18/17 19:55 04/18/17 04/18/17 04/18/17 19:55 19:55 19:55 WBC 10.3 RBC 4.68 Hgb 13.8 D Hct 40.6 MCV 87 MCH 29.4 MCHC 33.9 RDW 14.4 H Plt Count 146 L Seg Neutrophils % 74.8 Lymphocytes % 18.1 Monocytes % 5.7 Eosinophils % 0.9 Basophils % 0.5 Absolute Neutrophils 7.7 Absolute Lymphocytes 1.9 Absolute Monocytes 0.6 Absolute Eosinophils 0.1 Absolute Basophils 0.0 Sodium 136.6 L Potassium 4.1 Chloride 102 Carbon Dioxide 24 Anion Gap 11 BUN 29 H Creatinine 1.61 H Est GFR ( Amer) 52 L Est GFR (Non-Af Amer) 43 L Glucose 143 H Calcium 8.4 Magnesium 2.1 Total Bilirubin 0.6 AST 16 L ALT 31 Alkaline Phosphatase 84 Total Protein 5.4 L Albumin 3.0 L 04/16/17 04/16/17 04/17/17 21:45 21:45 03:51 Creatine Kinase 24 L < 20 L CK-MB (CK-2) 0.63 Troponin I 0.041 04/17/17 04/17/17 04/17/17 03:51 10:10 10:10 Creatine Kinase 26 L CK-MB (CK-2) 0.52 0.58 Troponin I 0.031 0.019 Impressions: Abdomen/Pelvis CT 04/16/17 06:44 IMPRESSION: NO SIGNIFICANT OR ACUTE PROCESS IN THE ABDOMEN OR PELVIS. Chest X-Ray 04/16/17 06:44 IMPRESSION: NO SIGNIFICANT RADIOGRAPHIC FINDING IN THE CHEST. 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 No acute findings. EVIDENCE OF ACUTE STROKE: NO. Assessment & Plan - Diagnosis (1) Senile dementia Qualifiers: Dementia behavioral disturbance: without behavioral disturbance Qualified Code(s): F03.90 - Unspecified dementia without behavioral disturbance Is this a current diagnosis for this admission?: Yes Plan: Continue patient on dementia medications. Psych consult with the sitter to evaluate this recent incident of suicidal ideation. Feel like his is able to make healthcare decisions on his behalf. However patient has a high functioning level with a history of dementia so I do personally think he still a good candidate for surgery at this point But it does not appear that surgery is warranted at this time. Patient will need home health needs to assist in activities of daily living due to his dementia (2) Gallstone Qualifiers: Cholecystitis presence: with cholecystitis Biliary obstruction: without biliary obstruction Is this a current diagnosis for this admission?: Yes Plan: Surgical consult for evaluation of cholecystectomy appreciate surgical consult. [place] patient did not need surgery now. Would recommend follow-up outpatient for ongoing evaluation and monitoring due to his multiple ER and admission visits for the same complaint. (3) Acute renal failure Qualifiers: Acute renal failure type: with acute tubular necrosis Qualified Code(s): N17.0 - Acute kidney failure with tubular necrosis Is this a current diagnosis for this admission?: Yes Plan: Suspect this patient would benefit from [place] cystectomy. This is his third fourth hospitalization in the very short period of time. He has been evaluated with chest pain, abdominal pain, nausea vomiting, right upper quadrant tenderness. He has documented gallstones due to his age, diabetes, despite that he does not have elevated LFTs at this time or a dilated that does not mean he does not have an acute cholecystitis which personally I would recommend his gallbladder removed for he become septic and . (4) Diabetes mellitus type 2 in nonobese Is this a current diagnosis for this admission?: Yes Plan: Stable continue home medications prior to this admission (6) Gallstones without obstruction of gallbladder Qualifiers: Cholelithiasis location: gallbladder Cholecystitis presence: without cholecystitis Qualified Code(s): K80.20 - Calculus of gallbladder without cholecystitis without obstruction Is this a current diagnosis for this admission?: Yes (7) Accelerated hypertension Is this a current diagnosis for this admission?: Yes Plan: Blood pressure is currently stable (8) Essential hypertension Is this a current diagnosis for this admission?: Yes (9) Peripheral vascular disease Is this a current diagnosis for this admission?: Yes (10) Sepsis Qualifiers: Sepsis type: sepsis due to unspecified organism Qualified Code(s): A41.9 - Sepsis, unspecified organism Is this a current diagnosis for this admission?: Yes Plan: Patient was treated with IV antibiotics responded well with therapy sepsis improved unknown source suspect can be coming from his small gallstones causing some transient occlusion Plan discharge in a.m. will need home health to be arranged prior to patient being discharged home safe
--- NOTE | 2017-04-19 09:53 | PDOC DISCHARGE SUMMARY ---
General - Admit/Disc Date/PCP Admission Date/Primary Care Provider: 04/16/17 13:28 Acute on chronic cholecystitis and acute renal failure Discharge Date: 04/19/17 - Discharge Diagnosis (1) Acute renal failure Is this a current diagnosis for this admission?: Yes Summary: Patient seems to be at his baseline at creatinine is 1.5 1.6 patient had acute on chronic renal failure resolved (2) Senile dementia Is this a current diagnosis for this admission?: Yes Summary: Patient has a history of dementia ongoing states he is hard to take care of at home we did get a psych consult currently on dementia medications follow- up outpatient with appropriate primary care physician in staffing for ongoing senile dementia. No acute needs to be addressed in the hospital outpatient care needs to be ongoing (3) Gallstone Is this a current diagnosis for this admission?: Yes Summary: Chronic in nature no abnormal wall thickening. HIDA scan from previous hospital did not show any need for surgery right now continue to monitor and evaluate outpatient (4) Diabetes mellitus type 2 in nonobese Is this a current diagnosis for this admission?: Yes (6) Gallstones without obstruction of gallbladder Is this a current diagnosis for this admission?: Yes (7) Accelerated hypertension Is this a current diagnosis for this admission?: Yes (8) Essential hypertension Is this a current diagnosis for this admission?: Yes Summary: Resolved currently on medications (9) Peripheral vascular disease Is this a current diagnosis for this admission?: Yes (10) Sepsis Is this a current diagnosis for this admission?: Yes Summary: Patient was treated with appropriate antibiotics afebrile no signs of infection suspect sepsis was urinary tract - Additional Information Resuscitation Status: Do Not Resuscitate Discharge Diet: As Tolerated Discharge Activity: Activity As Tolerated Home Medications: Aspirin 81 mg PO DAILY 05/01/15 Atorvastatin Calcium [Lipitor 20 mg Tablet] 40 mg PO QHS 05/01/15 Gabapentin [Neurontin] 600 mg PO QHS 05/01/15 Nitroglycerin [Nitrostat 0.4 mg (1/150 Gr) Tabs 25/Bottle] 1 tab SL Q5MP PRN Omeprazole 20 mg PO QAM 05/01/15 Donepezil HCl 10 mg PO DAILY 10/18/16 Cyanocobalamin (Vitamin B-12) [Vitamin B-12 1000 mcg Tablet] 1,000 mcg PO DAILY 10/19/16 Clopidogrel Bisulfate [Clopidogrel] 75 mg PO DAILY 04/16/17 Fluticasone/Salmeterol [Advair 250-50 Diskus 14 Dose/Diskus] 1 inh IH Q12HP PRN 04/16/17 Ondansetron [Ondansetron Odt] 4 mg PO Q6HP PRN 04/16/17 Metoprolol Succinate [Toprol Xl 50 mg Tab.sr] 100 mg PO Q12 30 Days #0 tab.sr.24h 04/19/17 History of Present Illness History of Present Illness: MONIQUE CALLAHAN is a 72 year old male Hospital Course Hospital Course: on chronic patient was admitted with acute renal failure accelerated hypertension dementia progressively worse he had some underlying sepsis most likely from urinary tract infection secondary to acute renal failure with acute tubular necrosis which IV fluids gentle hydration seems to be at his baseline. He also had some intravascular volume depletion from acute viral gastroenteritis resolved. Other past medical history includes abdominal aortic aneurysm without rupture and stable, COPD at his baseline, coronary artery disease stable patient is safely to return home. Only new medication change was metoprolol succinate 100 mg p.o. twice daily he is follow-up with his primary care physician for ongoing refills. Physical Exam Vital Signs: Temp Pulse Resp BP Pulse Ox 97.9 F 65 16 142/75 H 93 04/19/17 08:25 04/19/17 08:25 04/19/17 08:25 04/19/17 08:25 04/19/17 08:25 Intake & Output 04/18/17 04/19/17 04/20/17 06:59 06:59 06:59 Intake Total 733 2138 Output Total 250 Balance 483 2138 Weight 72.6 kg General appearance: PRESENT: no acute distress, well-developed, well-nourished Head exam: PRESENT: atraumatic, normocephalic Eye exam: PRESENT: conjunctiva pink, EOMI, PERRLA. ABSENT: scleral icterus Ear exam: PRESENT: normal external ear exam Mouth exam: PRESENT: moist, tongue midline Neck exam: ABSENT: carotid bruit, JVD, lymphadenopathy, thyromegaly Respiratory exam: PRESENT: clear to auscultation rocio. ABSENT: rales, rhonchi, wheezes Cardiovascular exam: PRESENT: RRR. ABSENT: diastolic murmur, rubs, systolic murmur Pulses: PRESENT: normal dorsalis pedis pul Vascular exam: PRESENT: normal capillary refill GI/Abdominal exam: PRESENT: normal bowel sounds, soft. ABSENT: distended, guarding, mass, organolmegaly, rebound, tenderness Rectal exam: PRESENT: deferred Extremities exam: PRESENT: full ROM. ABSENT: calf tenderness, clubbing, pedal edema Neurological exam: PRESENT: alert, awake, oriented to person, oriented to place , oriented to time, oriented to situation, CN II-XII grossly intact. ABSENT: motor sensory deficit Psychiatric exam: PRESENT: appropriate affect, normal mood. ABSENT: homicidal ideation, suicidal ideation Skin exam: PRESENT: dry, intact, warm. ABSENT: cyanosis, rash Results Laboratory Results: 04/18/17 19:55 04/18/17 19:55 04/18/17 04/18/17 04/18/17 19:55 19:55 19:55 WBC 10.3 RBC 4.68 Hgb 13.8 D Hct 40.6 MCV 87 MCH 29.4 MCHC 33.9 RDW 14.4 H Plt Count 146 L Seg Neutrophils % 74.8 Lymphocytes % 18.1 Monocytes % 5.7 Eosinophils % 0.9 Basophils % 0.5 Absolute Neutrophils 7.7 Absolute Lymphocytes 1.9 Absolute Monocytes 0.6 Absolute Eosinophils 0.1 Absolute Basophils 0.0 Sodium 136.6 L Potassium 4.1 Chloride 102 Carbon Dioxide 24 Anion Gap 11 BUN 29 H Creatinine 1.61 H Est GFR ( Amer) 52 L Est GFR (Non-Af Amer) 43 L Glucose 143 H Calcium 8.4 Magnesium 2.1 Total Bilirubin 0.6 AST 16 L ALT 31 Alkaline Phosphatase 84 Total Protein 5.4 L Albumin 3.0 L 04/16/17 04/16/17 04/17/17 21:45 21:45 03:51 Creatine Kinase 24 L < 20 L CK-MB (CK-2) 0.63 Troponin I 0.041 04/17/17 04/17/17 04/17/17 03:51 10:10 10:10 Creatine Kinase 26 L CK-MB (CK-2) 0.52 0.58 Troponin I 0.031 0.019 Impressions: Abdomen/Pelvis CT 04/16/17 06:44 IMPRESSION: NO SIGNIFICANT OR ACUTE PROCESS IN THE ABDOMEN OR PELVIS. Chest X-Ray 04/16/17 06:44 IMPRESSION: NO SIGNIFICANT RADIOGRAPHIC FINDING IN THE CHEST. 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 No acute findings. EVIDENCE OF ACUTE STROKE: NO.
[2017-04-19] MEDS: CLOPIDOGREL BISULFATE 75 MG TABLET PO SCH (10:05)
[2017-04-19] MEDS: ASPIRIN 81 MG TABLET, CHEWABLE PO SCH (10:05)
[2017-04-19] MEDS: LORAZEPAM 0.5 MG TABLET PO SCH (10:05)
[2017-04-19] MEDS: DONEPEZIL HCL 5 MG TABLET PO SCH (10:06)
[2017-04-19] MEDS: METOPROLOL SUCCINATE 50 MG TAB.SR.24H PO SCH (10:06)
[2017-04-19] MEDS: CYANOCOBALAMIN (VITAMIN B-12) 1,000 MCG TABLET PO SCH (10:06)
[2017-04-19] MEDS: DOCUSATE SODIUM 100 MG CAPSULE PO SCH (10:07)
[2017-04-19 10:45] VITALS: BP 163/87
== END 2017-04-19 11:50 | disposition home or self-care (01) | DRG 305 ==
LOC: ER 06:30 → EH 13:28 → OBSVTOIN 13:28 → 3N 15:06
PROVIDERS: ADMIT Hospitalist; ATTEND Hospitalist
DX: I16.1 Hypertensive emergency (principal); N17.9 Acute kidney failure, unspecified; I50.22 Chronic systolic (congestive) heart failure; I13.0 Hypertensive heart and chronic kidney disease with heart failure and stage 1 through stage 4 chronic kidney disease, or unspecified chronic kidney disease; E78.5 Hyperlipidemia, unspecified; I73.9 Peripheral vascular disease, unspecified; F03.90 Unspecified dementia, unspecified severity, without behavioral disturbance, psychotic disturbance, mood disturbance, and anxiety; I25.10 Atherosclerotic heart disease of native coronary artery without angina pectoris; J44.9 Chronic obstructive pulmonary disease, unspecified; N18.3 Chronic kidney disease, stage 3 (moderate); E11.22 Type 2 diabetes mellitus with diabetic chronic kidney disease; Z66 Do not resuscitate; Z96.642 Presence of left artificial hip joint; Z86.73 Personal history of transient ischemic attack (TIA), and cerebral infarction without residual deficits; Z79.891 Long term (current) use of opiate analgesic; K80.20 Calculus of gallbladder without cholecystitis without obstruction; F17.210 Nicotine dependence, cigarettes, uncomplicated; Z88.0 Allergy status to penicillin; G89.29 Other chronic pain; Z79.02 Long term (current) use of antithrombotics/antiplatelets; M19.90 Unspecified osteoarthritis, unspecified site
CPT/HCPCS: 36415; 70450; 71020; 74176; 80048; 80053; 81001; 82550; 82553; 82803; 82962; 83605; 83735; 84484; 85025; 85610; 87040; 87086; 93005; 93010; 96361; 96372; 96374; 96375; 96376; 99285; G8978-GP; G8979-GP; J1644; J2270; J2405; J2765; J3475; J3490; J7030; S0119

== ENCOUNTER 2019-12-31 18:49 | Emergency (ER) | payer MEDICARE, BC ==
[~2019-12-31 18:49] MED LIST: ETOMIDATE INJ/PF 20 MG/10 ML SDV IV ONE; SUCCINYLCHOLINE CHLORIDE INJ 200 MG/10 ML VIAL ONE; VECURONIUM BROMIDE INJ 10 MG VIAL IV ONE
[2019-12-31] MEDS ORDERED: NALOXONE HCL INJ 2 MG/2 ML DISP.SYRIN ONE (18:57)
[2019-12-31] MEDS ORDERED: NALOXONE HCL INJ 2 MG/2 ML DISP.SYRIN IV ONE (19:49)
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
[2019-12-31 20:25] LABS: ABSOLUTE EOSINOPHILS # (AUTO) 0.1 10^3/uL (0.0-0.6); ABSOLUTE LYMPHOCYTES (AUTO) 0.3 10^3/uL (0.5-4.7); ABSOLUTE MONOCYTES (AUTO) 0.2 10^3/uL (0.1-1.4); ABSOLUTE NEUT (AUTO) 4.2 10^3/uL (1.7-8.2); BASOPHILS % (AUTO) 0.4 % (0-2); EOSINOPHILS % (AUTO) 1.6 % (0-6); HEMATOCRIT 30.2 % (37.9-51.0); LYMPHOCYTES % (AUTO) 6.6 % (13-45); MEAN CORPUSCULAR HEMOGLOBIN 30.7 pg (27.0-33.4); MEAN CORPUSCULAR HGB CONC 33.1 g/dL (32.0-36.0); MEAN CORPUSCULAR VOLUME 93 fl (80-97); MONOCYTES % (AUTO) 4.1 % (3-13); RED BLOOD COUNT 3.25 10^6/uL (4.35-5.55); RED CELL DISTRIBUTION WIDTH 13.6 % (11.5-14.0); SEGMENTED NEUTROPHILS % (AUTO) 87.3 % (42-78); TOTAL CELLS COUNTED % (AUTO) 100 %; WHITE BLOOD COUNT 4.8 10^3/uL (4.0-10.5)
[2019-12-31 20:26] LABS: INTERNATIONAL RATION (INR) 1.04; PROTHROMBIN TIME 13.8 SEC (11.4-15.4)
[2019-12-31 20:40] LABS: ALBUMIN 2.1 g/dL (3.5-5.0); ALKALINE PHOSPHATASE 70 U/L (38-126); ASPARTATE AMINO TRANSFERASE 16 U/L (17-59); BILIRUBIN,DIRECT 0.3 mg/dL (0.0-0.4); BILIRUBIN,TOTAL 0.4 mg/dL (0.2-1.3); BLOOD UREA NITROGEN 52 mg/dL (7-20); CALCIUM 7.7 mg/dL (8.4-10.2); CREATINE KINASE 31 U/L (55-170); GLUCOSE 104 mg/dL (75-110); POTASSIUM 4.3 mmol/L (3.6-5.0); TOTAL PROTEIN 4.4 g/dL (6.3-8.2)
[2019-12-31 20:46] LABS: CARBON DIOXIDE 37 mmol/L (22-30); CHLORIDE 101 mmol/L (98-107)
[2019-12-31 20:49] LABS: ANION GAP 2 (5-19)
[2019-12-31] MEDS ORDERED: DEXTROSE 5%-WATER 250 ML with NOREPINEPHRINE BITARTRATE 4 MG IV PRN ×2 (20:56)
[2019-12-31 21:00] LABS: PLATELET COUNT 56 10^3/uL (150-450)
--- NOTE | 2019-12-31 21:04 | RADIOLOGY REPORT (SQ) ---
AP Portable chest: 12/31/2019 8:02 PM CDT History: 74-year old patient with hypoxia. Comparison: Chest radiograph performed 04/16/2017. Findings: The cardiomediastinal silhouette is normal in size. No pneumothorax is seen. There is volume loss within the right hemithorax with a moderate right effusion and overlying airspace opacities. There may be collapse of the right middle lobe. The descending aorta is ectatic. There is obscuration of the right hemidiaphragm, likely due to overlying airspace opacities and/or effusions. Impression: There is volume loss at the right hemithorax with a moderate right effusion. There may be collapse of the right middle lobe. This could be due to a mass or mucous plug. This will need interval follow-up. Bronchoscopy may be warranted.
[2019-12-31] MEDS ORDERED: NOREPINEPHRINE BITARTRATE INJ/PF 4 MG/4 ML SDV IV ONE (21:08)
[2019-12-31] MEDS ORDERED: VANCOMYCIN HCL INJ 1000 MG VIAL IV ONE (21:25)
[2019-12-31 22:36] LABS: ARTERIAL BLOOD BASE EXCESS 4.5 mmol/L; ARTERIAL BLOOD H2CO3 2.88 mmol/L (1.05-1.35); ARTERIAL BLOOD PO2 80.7 mmHg (80-100); ARTERIAL BLOOD TOTAL CO2 37.9 mmol/L (23-27)
[2019-12-31 22:38] LABS: ARTERIAL BLOOD PCO2 95.8 mmHg (35-45); ARTERIAL BLOOD PH 7.18 (7.35-7.45)
[2019-12-31] MEDS ORDERED: NORMAL SALINE 1000 ML 1,000 ML IV ONE (23:41)
[2019-12-31] MEDS ORDERED: LEVOFLOXACIN 750 MG/D5W RTU 750 MG/150 ML RTUPB IV SCH (23:45)
[2020-01-01] MEDS: NORMAL SALINE 1000 ML 1,000 ML IV PRN ×2 (00:57→01:35)
[2020-01-01] MEDS ORDERED: LORAZEPAM INJ 2 MG/1 ML VIAL IV ONE ×2 (02:38→02:46)
[2020-01-01] MEDS ORDERED: SUCCINYLCHOLINE CHLORIDE INJ 200 MG/10 ML VIAL IV ONE (02:45)
[2020-01-01] MEDS ORDERED: ETOMIDATE INJ/PF 20 MG/10 ML SDV IV ONE (02:45)
[2020-01-01] MEDS ORDERED: MIDAZOLAM HCL 50 MG/100 ML RTUINJ IV PRN (02:48)
[2020-01-01] MEDS ORDERED: VECURONIUM BROMIDE INJ 10 MG VIAL IV ONE (02:48)
--- NOTE | 2020-01-01 02:54 | ER Document Report ---
Doctor's Note Notes: 01/01/20 02:49 At 02 30 this MD was notified that during the course of transferring the patient from the BiPAP machine he was on here in the emergency department to the BiPAP machine that transport was using, patient appeared to become more altered and had markedly decreased chest rise. In order to protect the patient's airway and with concerns of respiratory failure and hypercapnia this MD decided to protect the patient's airway using rapid sequence intubation with a #8 ET tube. See procedure note Procedures - Intubation Orotracheal Time of Intubation: 02:40 - respiratory failure Mallampati Classification: Class 3 Medications: Etomidate, Succinylcholine Intubation method: Orotracheal Blade type: Mathur Blade size: 4 Equipment used: Glidescope ETT size: 8.0 ETT secured at: Lips ETT secured at (cm): 22 Breath Sounds after Intubation: Equal End tidal CO2 confirmed: Yes Post Intubation Xray: Yes - ETT appears to be roughly 3 cm above benedict. RT asked to advance tube 1 cm. Intubation Complications: No complications
--- NOTE | 2020-01-01 02:59 | ER Document Report ---
Doctor's Note Notes: 01/01/20 02:56 Given the patient was no longer able to be transported by the ground transport crew, nursing staff got in touch with [facility]. [facility] This MD change mode of transport on the Intal sheet, put a single abdirahman through the ground ALS area and put my initials date time beside it.
--- NOTE | 2020-01-01 03:33 | RADIOLOGY REPORT (SQ) ---
EXAM DESCRIPTION: XR CHEST 1 VIEW COMPLETED DATE/TME: 01/01/2020 02:32 CLINICAL HISTORY: 74 years, Male, CHF COMPARISON: 12/31/2019 NUMBER OF VIEWS: One TECHNIQUE: AP view of the chest LIMITATIONS: None. FINDINGS: There is decrease in size of the right pleural effusion with improved aeration of the right lung base. Again noted is right-sided volume loss with mild rightward mediastinal shift. The endotracheal tube is in satisfactory position 26.1 cm above the benedict. The nasogastric tube satisfactory position terminating within the stomach. No pneumothorax. Heart size is stable. Bones are unchanged. IMPRESSION: Satisfactory position of the endotracheal and nasogastric tubes. Decrease in size of the right pleural effusion with improved aeration of the right lung base. copyright 2010 [employer]- All Rights Reserved
--- NOTE | 2020-01-01 03:55 | ER Document Report ---
Doctor's Note Notes: 01/01/20 03:53 Transport has arrived to take patient via medical helicopter to [facility] in [place]. Patient is tolerating intubation and being on the ventilator well. Patient appears stable for transfer at this time.
[2020-01-01 03:57] VITALS: BP 80/52
--- NOTE | 2020-01-01 10:32 | EKG REPORT ---
SEVERITY:- ABNORMAL ECG - ATRIAL FIBRILLATION, V-RATE 52-70 VENTRICULAR TRIGEMINY NONSPECIFIC T ABNORMALITIES, DIFFUSE LEADS : Confirmed by: Rebecca Llamas MD 01-Jan-2020 10:31:53
== END 2020-01-01 03:58 | disposition short-term general hospital (02) ==
LOC: ER 18:49
DX: A41.9 Sepsis, unspecified organism (principal); R65.20 Severe sepsis without septic shock; J96.01 Acute respiratory failure with hypoxia; I95.9 Hypotension, unspecified; T68.XXXA Hypothermia, initial encounter; X58.XXXA Exposure to other specified factors, initial encounter; J44.9 Chronic obstructive pulmonary disease, unspecified; F03.90 Unspecified dementia, unspecified severity, without behavioral disturbance, psychotic disturbance, mood disturbance, and anxiety; E86.1 Hypovolemia; I95.89 Other hypotension; I11.0 Hypertensive heart disease with heart failure; I50.9 Heart failure, unspecified; R53.1 Weakness; R42 Dizziness and giddiness; R53.81 Other malaise; I25.10 Atherosclerotic heart disease of native coronary artery without angina pectoris; E11.51 Type 2 diabetes mellitus with diabetic peripheral angiopathy without gangrene; I25.2 Old myocardial infarction; F32.9 Major depressive disorder, single episode, unspecified; Z79.891 Long term (current) use of opiate analgesic; Z79.899 Other long term (current) drug therapy; Z87.891 Personal history of nicotine dependence; Z79.4 Long term (current) use of insulin; Z79.01 Long term (current) use of anticoagulants; Z98.890 Other specified postprocedural states; Z20.828 Contact with and (suspected) exposure to other viral communicable diseases
CPT/HCPCS: 31500; 93005; 96376; 99291; 99292; 51702; 96375; 96365; 96366; 96368; 36415; 87040; 82803; 82550; 83605; 83735; 85025; 85610; 87077; 80053; 84484; 87186; 87150 ×26; 83880; 71045 ×2; 94660; 93010; 36600; U0003; J3490 ×4; J2060; J0330; J2310; J2250; J7030 ×2; J3370; J1956; C9803; 87635